=== PATIENT | male | born 1930 | race Caucasian/White ===

== ENCOUNTER 2018-03-08 13:47 | Inpatient (IN) | payer MEDICARE ==
[~2018-03-08] VITALS: Ht 170.2 cm; Wt 50.9 kg
[~2018-03-08 13:47] MED LIST: ASPI-496 PO; ENAL2.5T PO; FOLI-17 PO; GLIP5TAB10 PO; HYDR-882 PO; METF500T4 PO; METH2.5T PO; POTA10TA11 PO; PRED2.5T PO; TAMS0.4C2 PO
[2018-03-08 14:43] LABS: BASOPHILS # (AUTO) 0.03 x10^3/uL (0-0.1); BASOPHILS % (AUTO) 0 % (0-1); EOSINOPHILS # (AUTO) 0.22 x10^3/uL (0-0.4); EOSINOPHILS % (AUTO) 2 % (1-7); LYMPHOCYTES # (AUTO) 1.99 x10^3/uL (1-3.4); LYMPHOCYTES % (AUTO) 21 % (22-44); MD NO; MEAN CORPUSCULAR HEMOGLOBIN 30.6 pg (27.5-34.5); MEAN CORPUSCULAR HGB CONC 33.5 g/dL (33.2-36.2); MEAN CORPUSCULAR VOLUME 91.3 fL (81-97); MONOCYTES # (AUTO) 0.97 x10^3/uL (0.2-0.8); MONOCYTES % (AUTO) 10 % (2-9); NEUTROPHILS # (AUTO) 6.52 x10^3/uL (1.8-6.8); NEUTROPHILS % (AUTO) 67 % (42-75); PLATELET COUNT 196 x10^3/uL (130-400); RED CELL DISTRIBUTION WIDTH 14.5 % (9.4-14.8)
[2018-03-08 14:50] LABS: ALBUMIN 3.8 g/dL (3.4-5.0); ANION GAP 8 mmol/L (5-15); CALCIUM 8.9 mg/dL (8.5-10.1); CHLORIDE 94 mmol/L (98-107)
[2018-03-08 14:54] LABS: ALANINE AMINOTRANSFERASE 17 U/L (12-78); ALKALINE PHOSPHATASE 29 U/L (45-117); BILIRUBIN,TOTAL 1.9 mg/dL (0.2-1.0); TOTAL PROTEIN 7.6 g/dL (6.4-8.2)
[2018-03-08 15:17] LABS: TROPONIN I 0.024 ng/mL (0.000-0.045)
[2018-03-08 15:19] LABS: MICROSCOPIC AUTO
[2018-03-08 15:21] LABS: CULTURE INDICATED? YES
[2018-03-08] MEDS ORDERED: CEFTRIAXONE PMX 1GM/50ML 50 ML IVPB ONE (16:00)
[2018-03-08] MEDS ORDERED: CEFTRIAXONE PMX 1GM/50ML 50 ML ONE (16:00)
[2018-03-08] MEDS ORDERED: ONDANSETRON 2MG/ML, 2ML IVPush PRN (17:00)
[2018-03-08] MEDS: CEFTRIAXONE PMX 1GM/50ML 50 ML IV SCH (17:07)
[2018-03-08] MEDS ORDERED: [UNRECOGNIZED DRUG - OTHER] IV (17:13)
[2018-03-08] MEDS ORDERED: GLIP5TAB10 PO (17:13)
[2018-03-08 17:34] LABS: FREE T4 (FREE THYROXINE) 1.1 ng/dL (0.76-1.46)
[2018-03-08] MEDS: ENOXAPARIN 40 MG/0.4 ML SQ SCH (18:24)
[2018-03-08] MEDS: SODIUM CHLORIDE 0.9% 1,000 ML IV SCH (18:24)
[2018-03-08 18:43] VITALS: BP 192/91
[2018-03-08] MEDS: LABETALOL 5MG/ML, 20ML IVPush PRN (18:48)
[2018-03-08 19:47] VITALS: BP 158/73
[2018-03-08] MEDS: INSULIN LISPRO 100 UNITS/ML, PEN SQ-INSULIN SCH (21:16)
[2018-03-08 21:30] VITALS: BP 167/83
[2018-03-08 21:32] VITALS: BP 159/80
[2018-03-08 21:35] VITALS: BP 142/75
[2018-03-09] VITALS (8 sets, daily range): BP systolic 150–174; BP diastolic 74–84
[2018-03-09] MEDS: SODIUM CHLORIDE 0.9% 1,000 ML IV SCH ×2 (04:31→13:37)
[2018-03-09 06:17] LABS: BASOPHILS # (AUTO) 0.02 x10^3/uL (0-0.1); BASOPHILS % (AUTO) 0 % (0-1); EOSINOPHILS # (AUTO) 0.22 x10^3/uL (0-0.4); EOSINOPHILS % (AUTO) 4 % (1-7); LYMPHOCYTES # (AUTO) 1.81 x10^3/uL (1-3.4); LYMPHOCYTES % (AUTO) 29 % (22-44); MD NO; MEAN CORPUSCULAR HEMOGLOBIN 30.2 pg (27.5-34.5); MEAN CORPUSCULAR HGB CONC 33.1 g/dL (33.2-36.2); MEAN CORPUSCULAR VOLUME 91.2 fL (81-97); MONOCYTES # (AUTO) 0.77 x10^3/uL (0.2-0.8); MONOCYTES % (AUTO) 13 % (2-9); NEUTROPHILS # (AUTO) 3.36 x10^3/uL (1.8-6.8); NEUTROPHILS % (AUTO) 54 % (42-75); PLATELET COUNT 164 x10^3/uL (130-400); RED BLOOD COUNT 3.87 x10^6/uL (4.38-5.82); RED CELL DISTRIBUTION WIDTH 14.6 % (9.4-14.8)
[2018-03-09 06:26] LABS: ANION GAP 4 mmol/L (5-15); CALCIUM 8.4 mg/dL (8.5-10.1); CHLORIDE 103 mmol/L (98-107)
[2018-03-09 06:38] LABS: ALANINE AMINOTRANSFERASE 14 U/L (12-78); ALKALINE PHOSPHATASE 23 U/L (45-117); BILIRUBIN,TOTAL 1.3 mg/dL (0.2-1.0); CREATININE 0.78 mg/dL (0.7-1.3); TOTAL PROTEIN 6.3 g/dL (6.4-8.2)
[2018-03-09] MEDS: INSULIN LISPRO 100 UNITS/ML, PEN SQ-INSULIN SCH ×4 (07:00→20:23)
[2018-03-09] MEDS: SENNA/DOCUSATE TABLET PO SCH (08:10)
[2018-03-09] MEDS: ASPIRIN 81 MG TABLET EC PO SCH (08:10)
[2018-03-09] MEDS: TAMSULOSIN 0.4 MG CAP.ER.24H PO SCH (08:10)
[2018-03-09] MEDS: FOLIC ACID 1 MG TABLET PO SCH (08:10)
[2018-03-09] MEDS ORDERED: DOCUSATE 100 MG CAPSULE PO PRN (16:00)
[2018-03-09] MEDS: POLYETHYLENE GLYCOL 17 GM PACKET PO PRN (16:38)
[2018-03-09] MEDS: ENOXAPARIN 40 MG/0.4 ML SQ SCH (16:38)
[2018-03-09] MEDS: CEFTRIAXONE PMX 1GM/50ML 50 ML IV SCH (17:21)
[2018-03-10 00:58] VITALS: BP_SYST 180; BP_SYST 188; BP_DIAS 85; BP_DIAS 88
[2018-03-10] MEDS: LABETALOL 5MG/ML, 20ML IVPush PRN (01:10)
[2018-03-10 02:02] VITALS: BP 156/74
[2018-03-10 06:04] LABS: BASOPHILS # (AUTO) 0.04 x10^3/uL (0-0.1); BASOPHILS % (AUTO) 0 % (0-1); EOSINOPHILS % (AUTO) 3 % (1-7); LYMPHOCYTES # (AUTO) 1.33 x10^3/uL (1-3.4); LYMPHOCYTES % (AUTO) 15 % (22-44); MD NO; MEAN CORPUSCULAR HGB CONC 32.9 g/dL (33.2-36.2); MEAN CORPUSCULAR VOLUME 90.9 fL (81-97); MEAN PLATELET VOLUME 6.4 fL (7.4-10.4); MONOCYTES # (AUTO) 0.75 x10^3/uL (0.2-0.8); MONOCYTES % (AUTO) 9 % (2-9); NEUTROPHILS # (AUTO) 6.39 x10^3/uL (1.8-6.8); NEUTROPHILS % (AUTO) 73 % (42-75); PLATELET COUNT 163 x10^3/uL (130-400); RED BLOOD COUNT 3.94 x10^6/uL (4.38-5.82); RED CELL DISTRIBUTION WIDTH 14.9 % (9.4-14.8)
[2018-03-10 06:21] LABS: ANION GAP 9 mmol/L (5-15); CALCIUM 8.6 mg/dL (8.5-10.1); CHLORIDE 104 mmol/L (98-107)
[2018-03-10 06:24] LABS: CREATININE 0.69 mg/dL (0.7-1.3)
[2018-03-10] MEDS ORDERED: POTASSIUM CHLORIDE 20 MEQ TAB.ER.PRT PO ONE ×2 (07:30→10:30)
[2018-03-10] MEDS: ASPIRIN 81 MG TABLET EC PO SCH (08:25)
[2018-03-10] MEDS: TAMSULOSIN 0.4 MG CAP.ER.24H PO SCH (08:25)
[2018-03-10] MEDS: INSULIN LISPRO 100 UNITS/ML, PEN SQ-INSULIN SCH ×4 (08:25→21:46)
[2018-03-10] MEDS: FOLIC ACID 1 MG TABLET PO SCH (08:26)
[2018-03-10] MEDS: SENNA/DOCUSATE TABLET PO SCH (08:26)
[2018-03-10 08:56] LABS: HEMOGLOBIN A1C 6.4 % (4.2-6.3)
[2018-03-10] MEDS ORDERED: ENALAPRIL 2.5MG TABLET PO SCH (09:00)
[2018-03-10 10:33] VITALS: BP 153/78
[2018-03-10] MEDS: SODIUM CHLORIDE 0.45% 1,000 ML IV SCH (12:00)
[2018-03-10 13:06] VITALS: BP 152/78
[2018-03-10] MEDS ORDERED: SODIUM CHLORIDE 0.9% 1,000 ML IV SCH (16:37)
[2018-03-10] MEDS: ENOXAPARIN 40 MG/0.4 ML SQ SCH (16:49)
[2018-03-10] MEDS: POLYETHYLENE GLYCOL 17 GM PACKET PO PRN (16:49)
[2018-03-10] MEDS: CEFTRIAXONE PMX 1GM/50ML 50 ML IV SCH (16:49)
[2018-03-10 18:57] VITALS: BP 142/74
[2018-03-11 02:00] VITALS: BP 157/88
[2018-03-11] MEDS: ONDANSETRON ODT 4 MG PO PRN ×2 (05:28→08:57)
[2018-03-11 05:58] LABS: CHLORIDE 100 mmol/L (98-107)
[2018-03-11 06:01] LABS: BASOPHILS # (AUTO) 0.03 x10^3/uL (0-0.1); BASOPHILS % (AUTO) 0 % (0-1); EOSINOPHILS # (AUTO) 0.16 x10^3/uL (0-0.4); EOSINOPHILS % (AUTO) 2 % (1-7); LYMPHOCYTES # (AUTO) 1.11 x10^3/uL (1-3.4); LYMPHOCYTES % (AUTO) 12 % (22-44); MD NO; MEAN CORPUSCULAR HEMOGLOBIN 30.2 pg (27.5-34.5); MEAN CORPUSCULAR HGB CONC 33.1 g/dL (33.2-36.2); MEAN CORPUSCULAR VOLUME 91.3 fL (81-97); MONOCYTES # (AUTO) 0.64 x10^3/uL (0.2-0.8); MONOCYTES % (AUTO) 7 % (2-9); NEUTROPHILS # (AUTO) 7.78 x10^3/uL (1.8-6.8); NEUTROPHILS % (AUTO) 80 % (42-75); PLATELET COUNT 149 x10^3/uL (130-400); RED BLOOD COUNT 3.97 x10^6/uL (4.38-5.82); RED CELL DISTRIBUTION WIDTH 14.9 % (9.4-14.8)
[2018-03-11 06:03] LABS: ALBUMIN 3.2 g/dL (3.4-5.0); ANION GAP 11 mmol/L (5-15); CALCIUM 8.3 mg/dL (8.5-10.1); CREATININE 0.61 mg/dL (0.7-1.3)
[2018-03-11 06:37] VITALS: BP 181/87
[2018-03-11] MEDS: SODIUM CHLORIDE 0.45% 1,000 ML IV SCH (08:47)
[2018-03-11] MEDS: ASPIRIN 81 MG TABLET EC PO SCH (08:47)
[2018-03-11] MEDS: THIAMINE 100MG TABLET PO SCH (08:47)
[2018-03-11] MEDS: INSULIN LISPRO 100 UNITS/ML, PEN SQ-INSULIN SCH ×4 (08:47→21:05)
[2018-03-11] MEDS: AMLODIPINE 5 MG TABLET PO SCH ×2 (08:48→21:04)
[2018-03-11] MEDS: FOLIC ACID 1 MG TABLET PO SCH ×2 (08:48)
[2018-03-11] MEDS: TAMSULOSIN 0.4 MG CAP.ER.24H PO SCH (08:48)
[2018-03-11] MEDS: SENNA/DOCUSATE TABLET PO SCH (08:57)
[2018-03-11] MEDS ORDERED: LORazepam 0.5MG TABLET PO PRN (09:00)
[2018-03-11 11:13] VITALS: BP 156/76
[2018-03-11] MEDS ORDERED: BISACODYL 10 MG SUPP PR ONE (14:30)
[2018-03-11] MEDS ORDERED: MAGNESIUM HYDROXIDE 8%, 30ML UDC PO ONE (14:30)
[2018-03-11] MEDS: POLYETHYLENE GLYCOL 17 GM PACKET PO PRN (14:32)
[2018-03-11 15:02] VITALS: BP 154/79
[2018-03-11] MEDS: CEFTRIAXONE PMX 1GM/50ML 50 ML IV SCH (17:27)
[2018-03-11] MEDS: ENOXAPARIN 40 MG/0.4 ML SQ SCH (17:28)
[2018-03-11 18:53] VITALS: BP 144/73
[2018-03-12 01:35] VITALS: BP 164/80
[2018-03-12] MEDS: SODIUM CHLORIDE 0.45% 1,000 ML IV SCH (03:25)
[2018-03-12 05:20] LABS: BASOPHILS # (AUTO) 0.03 x10^3/uL (0-0.1); BASOPHILS % (AUTO) 0 % (0-1); EOSINOPHILS # (AUTO) 0.31 x10^3/uL (0-0.4); EOSINOPHILS % (AUTO) 4 % (1-7); LYMPHOCYTES # (AUTO) 1.44 x10^3/uL (1-3.4); LYMPHOCYTES % (AUTO) 16 % (22-44); MD NO; MEAN CORPUSCULAR HEMOGLOBIN 30.7 pg (27.5-34.5); MEAN CORPUSCULAR HGB CONC 33.7 g/dL (33.2-36.2); MEAN CORPUSCULAR VOLUME 91.2 fL (81-97); MEAN PLATELET VOLUME 6.8 fL (7.4-10.4); MONOCYTES # (AUTO) 0.86 x10^3/uL (0.2-0.8); MONOCYTES % (AUTO) 10 % (2-9); NEUTROPHILS # (AUTO) 6.39 x10^3/uL (1.8-6.8); NEUTROPHILS % (AUTO) 71 % (42-75); PLATELET COUNT 151 x10^3/uL (130-400); RED CELL DISTRIBUTION WIDTH 14.9 % (9.4-14.8)
[2018-03-12 05:31] LABS: CALCIUM 8.3 mg/dL (8.5-10.1); CHLORIDE 100 mmol/L (98-107)
[2018-03-12 05:35] LABS: ALANINE AMINOTRANSFERASE 12 U/L (12-78); ALBUMIN 3.1 g/dL (3.4-5.0); ALKALINE PHOSPHATASE 26 U/L (45-117); ANION GAP 6 mmol/L (5-15); BILIRUBIN,TOTAL 0.8 mg/dL (0.2-1.0); CREATININE 0.64 mg/dL (0.7-1.3); TOTAL PROTEIN 6.5 g/dL (6.4-8.2)
[2018-03-12 08:08] VITALS: BP 132/73
[2018-03-12] MEDS: THIAMINE 100MG TABLET PO SCH (08:41)
[2018-03-12] MEDS: TAMSULOSIN 0.4 MG CAP.ER.24H PO SCH (08:41)
[2018-03-12] MEDS: FOLIC ACID 1 MG TABLET PO SCH ×2 (08:41→08:42)
[2018-03-12] MEDS: INSULIN LISPRO 100 UNITS/ML, PEN SQ-INSULIN SCH ×2 (08:42→11:15)
[2018-03-12] MEDS: ASPIRIN 81 MG TABLET EC PO SCH (08:42)
[2018-03-12] MEDS: AMLODIPINE 5 MG TABLET PO SCH (08:42)
[2018-03-12] MEDS: SENNA/DOCUSATE TABLET PO SCH (08:43)
[2018-03-12] MEDS ORDERED: THIA100T6 PO (13:33)
[2018-03-12] MEDS ORDERED: AMLO5TAB2 PO (13:33)
[2018-03-12] MEDS ORDERED: FOLI-17 PO (13:33)
[2018-03-12] MEDS ORDERED: CEFD300C37 PO (13:34)
== END 2018-03-12 15:07 | disposition home health service (06) | DRG 689 ==
LOC: ED 15:49 → 3NE 15:50 → ED 16:36 → 4WST 17:55
PROVIDERS: ADMIT Internal Medicine; ATTEND Internal Medicine
DX: N30.00 Acute cystitis without hematuria (principal); E43 Unspecified severe protein-calorie malnutrition; E11.65 Type 2 diabetes mellitus with hyperglycemia; D89.9 Disorder involving the immune mechanism, unspecified; R17 Unspecified jaundice; E87.1 Hypo-osmolality and hyponatremia; M06.9 Rheumatoid arthritis, unspecified; Z68.1 Body mass index [BMI] 19.9 or less, adult; R62.7 Adult failure to thrive; W18.30XA Fall on same level, unspecified, initial encounter; N40.0 Benign prostatic hyperplasia without lower urinary tract symptoms; E78.5 Hyperlipidemia, unspecified; I10 Essential (primary) hypertension; Z66 Do not resuscitate; K59.00 Constipation, unspecified; M19.90 Unspecified osteoarthritis, unspecified site; Z79.899 Other long term (current) drug therapy; Z79.82 Long term (current) use of aspirin; Z79.84 Long term (current) use of oral hypoglycemic drugs; Y93.89 Activity, other specified; Y92.89 Other specified places as the place of occurrence of the external cause; Y99.8 Other external cause status
CPT/HCPCS: 36415; 74018; 74022; 80048; 80053; 81001; 82040; 82962; 83036; 83605; 83735; 84100; 84439; 84443; 84484; 85025; 87040; 87086; 93005; 93306; 96365; 96372; 96375; J0696; J1650; Q0162; J1815; J7030

== ENCOUNTER 2018-06-22 14:39 | Inpatient (IN) | payer MEDICARE ==
[~2018-06-22] VITALS: Ht 167.6 cm; Wt 52.6 kg
[~2018-06-22 14:39] MED LIST changes: +AMLO5TAB7 PO; +CEFD300C37 PO; +INSU100I11 SQ-INSULIN; +LISI-167 PO; +METF500T17 PO; -METF500T4 PO; +PRED1TAB PO; +THIA100T67 PO; +[UNRECOGNIZED DRUG - OTHER] IV
[2018-06-22] MEDS ORDERED: SODIUM CHLORIDE 0.9% 1,000ML IVBOLUS ONE (15:00)
[2018-06-22] MEDS ORDERED: SODIUM CHLORIDE FLUSH 10ML SYR IVF ONE (15:00)
[2018-06-22 15:45] LABS: CULTURE INDICATED? YES; MICROSCOPIC INDICATED
[2018-06-22 16:04] LABS: BASOPHILS # (AUTO) 0.03 x10^3/uL (0-0.1); BASOPHILS % (AUTO) 0 % (0-1); EOSINOPHILS # (AUTO) 0.06 x10^3/uL (0-0.4); EOSINOPHILS % (AUTO) 1 % (1-7); LYMPHOCYTES # (AUTO) 1.03 x10^3/uL (1-3.4); LYMPHOCYTES % (AUTO) 15 % (22-44); MD NO; MEAN CORPUSCULAR HEMOGLOBIN 30.2 pg (27.5-34.5); MEAN CORPUSCULAR HGB CONC 33.6 g/dL (33.2-36.2); MEAN CORPUSCULAR VOLUME 89.7 fL (81-97); MEAN PLATELET VOLUME 6.4 fL (7.4-10.4); MONOCYTES # (AUTO) 0.66 x10^3/uL (0.2-0.8); MONOCYTES % (AUTO) 10 % (2-9); NEUTROPHILS # (AUTO) 5.05 x10^3/uL (1.8-6.8); NEUTROPHILS % (AUTO) 74 % (42-75); PLATELET COUNT 218 x10^3/uL (130-400); RED BLOOD COUNT 3.92 x10^6/uL (4.38-5.82); RED CELL DISTRIBUTION WIDTH 16.1 % (9.4-14.8)
[2018-06-22 16:13] LABS: ALBUMIN 3.1 g/dL (3.4-5.0); ANION GAP 7 mmol/L (5-15); CALCIUM 8.7 mg/dL (8.5-10.1); CHLORIDE 96 mmol/L (98-107)
[2018-06-22 16:14] LABS: INTERNATIONAL NORMALIZED RATIO 1.08 (0.93-1.1); PROTHROMBIN TIME 11.1 Seconds (9.6-11.5)
[2018-06-22 16:18] LABS: ALANINE AMINOTRANSFERASE 15 U/L (12-78); ALKALINE PHOSPHATASE 25 U/L (45-117); BILIRUBIN,TOTAL 0.8 mg/dL (0.2-1.0); CREATININE 0.77 mg/dL (0.7-1.3); TOTAL PROTEIN 6.8 g/dL (6.4-8.2)
[2018-06-22] MEDS ORDERED: TIMO5DRO33 EACHEYE (16:22)
[2018-06-22] MEDS ORDERED: LATA7.5D EACHEYE (16:24)
[2018-06-22] MEDS ORDERED: METH2.5T PO (16:31)
[2018-06-22] MEDS ORDERED: CITA10TA4 PO (16:32)
[2018-06-22] MEDS ORDERED: LISI-167 PO (16:33)
[2018-06-22] MEDS ORDERED: METF500T17 PO (16:34)
[2018-06-22] MEDS ORDERED: BISA5TAB5 PO (16:35)
[2018-06-22] MEDS ORDERED: SODIUM CHLORIDE 0.9% 1,000 ML IV SCH (17:25)
[2018-06-22] MEDS ORDERED: BISACODYL 10 MG SUPP PR PRN (17:30)
[2018-06-22] MEDS ORDERED: ACETAMINOPHEN 325 MG TABLET PO PRN (17:30)
[2018-06-22] MEDS ORDERED: DOCUSATE 100 MG CAPSULE PO PRN (17:30)
[2018-06-22] MEDS ORDERED: POLYETHYLENE GLYCOL 17 GM PACKET PO PRN ×2 (17:30→18:00)
[2018-06-22] MEDS ORDERED: SODIUM CHLORIDE FLUSH 10ML SYR IVF PRN (18:00)
[2018-06-22] MEDS ORDERED: LIDODERM 5% PATCH TD PRN (18:00)
[2018-06-22] MEDS: TIMOLOL OPHTH 0.5%, 5ML EACHEYE SCH (21:00)
[2018-06-22] MEDS: BISACODYL 5 MG EC TABLET PO SCH (21:00)
[2018-06-22] MEDS: LATANOPROST OPHTH 0.005%, 2.5ML EACHEYE SCH (21:00)
[2018-06-22] MEDS: metFORMIN 500 MG TABLET PO SCH (21:00)
[2018-06-22] MEDS ORDERED: HYDROcodone/APAP 5/325 TABLET ONE (21:55)
[2018-06-22 22:14] VITALS: BP 109/79
[2018-06-23 04:43] LABS: BASOPHILS # (AUTO) 0.02 x10^3/uL (0-0.1); BASOPHILS % (AUTO) 0 % (0-1); EOSINOPHILS # (AUTO) 0.12 x10^3/uL (0-0.4); EOSINOPHILS % (AUTO) 2 % (1-7); LYMPHOCYTES # (AUTO) 1.08 x10^3/uL (1-3.4); LYMPHOCYTES % (AUTO) 18 % (22-44); MD NO; MEAN CORPUSCULAR HEMOGLOBIN 29.8 pg (27.5-34.5); MEAN CORPUSCULAR HGB CONC 33.8 g/dL (33.2-36.2); MEAN PLATELET VOLUME 6.4 fL (7.4-10.4); MONOCYTES # (AUTO) 0.68 x10^3/uL (0.2-0.8); MONOCYTES % (AUTO) 11 % (2-9); NEUTROPHILS # (AUTO) 4.06 x10^3/uL (1.8-6.8); NEUTROPHILS % (AUTO) 68 % (42-75); PLATELET COUNT 195 x10^3/uL (130-400); RED BLOOD COUNT 3.58 x10^6/uL (4.38-5.82); RED CELL DISTRIBUTION WIDTH 15.8 % (9.4-14.8)
[2018-06-23 04:49] LABS: ALBUMIN 2.7 g/dL (3.4-5.0); ANION GAP 5 mmol/L (5-15); CHLORIDE 97 mmol/L (98-107)
[2018-06-23 05:00] VITALS: BP 149/79
[2018-06-23 05:17] LABS: ALANINE AMINOTRANSFERASE 16 U/L (12-78); ALKALINE PHOSPHATASE 25 U/L (45-117); BILIRUBIN,TOTAL 0.8 mg/dL (0.2-1.0); CREATININE 0.57 mg/dL (0.7-1.3); THYROID STIMULATING HORMONE 0.439 mIU/L (0.358-3.740)
[2018-06-23] MEDS: TIMOLOL OPHTH 0.5%, 5ML EACHEYE SCH ×2 (09:00→21:00)
[2018-06-23] MEDS: PANTOPRAZOLE 40 MG IV IVPush SCH (09:57)
[2018-06-23] MEDS: CITALOPRAM 10 MG TABLET PO SCH (09:58)
[2018-06-23] MEDS: LISINOPRIL 10 MG TABLET PO SCH (09:58)
[2018-06-23] MEDS: FOLIC ACID 1 MG TABLET PO SCH (09:58)
[2018-06-23] MEDS: TAMSULOSIN 0.4 MG CAP.ER.24H PO SCH (09:58)
[2018-06-23] MEDS ORDERED: MAGNESIUM SULFATE PMX 2GM/50ML 50 ML IV ONE (11:30)
[2018-06-23] MEDS: ERGOCALCIFEROL 50,000 UNIT CAPSULE PO SCH (12:56)
[2018-06-23] MEDS: LATANOPROST OPHTH 0.005%, 2.5ML EACHEYE SCH (21:00)
[2018-06-23] MEDS: metFORMIN 500 MG TABLET PO SCH (23:15)
[2018-06-23] MEDS: BISACODYL 5 MG EC TABLET PO SCH (23:16)
[2018-06-24 00:56] VITALS: BP 131/67
[2018-06-24 04:53] VITALS: BP 128/79
[2018-06-24 05:17] LABS: ANION GAP 8 mmol/L (5-15); CALCIUM 8.4 mg/dL (8.5-10.1); CHLORIDE 98 mmol/L (98-107); CREATININE 0.63 mg/dL (0.7-1.3)
[2018-06-24 05:27] LABS: BASOPHILS # (AUTO) 0.01 x10^3/uL (0-0.1); BASOPHILS % (AUTO) 0 % (0-1); EOSINOPHILS # (AUTO) 0.13 x10^3/uL (0-0.4); EOSINOPHILS % (AUTO) 2 % (1-7); LYMPHOCYTES # (AUTO) 1.22 x10^3/uL (1-3.4); LYMPHOCYTES % (AUTO) 16 % (22-44); MD NO; MEAN CORPUSCULAR HEMOGLOBIN 30.1 pg (27.5-34.5); MEAN CORPUSCULAR VOLUME 88.7 fL (81-97); MEAN PLATELET VOLUME 6.7 fL (7.4-10.4); MONOCYTES # (AUTO) 0.81 x10^3/uL (0.2-0.8); MONOCYTES % (AUTO) 11 % (2-9); NEUTROPHILS % (AUTO) 72 % (42-75); PLATELET COUNT 211 x10^3/uL (130-400); RED BLOOD COUNT 3.93 x10^6/uL (4.38-5.82); RED CELL DISTRIBUTION WIDTH 16.1 % (9.4-14.8)
[2018-06-24 07:49] VITALS: BP 124/53
[2018-06-24] MEDS: TIMOLOL OPHTH 0.5%, 5ML EACHEYE SCH ×2 (09:00→20:45)
[2018-06-24] MEDS: PANTOPRAZOLE 40 MG IV IVPush SCH (09:25)
[2018-06-24] MEDS: TAMSULOSIN 0.4 MG CAP.ER.24H PO SCH (09:25)
[2018-06-24] MEDS: LISINOPRIL 10 MG TABLET PO SCH (09:25)
[2018-06-24] MEDS: FOLIC ACID 1 MG TABLET PO SCH (09:26)
[2018-06-24] MEDS: CITALOPRAM 10 MG TABLET PO SCH (09:26)
[2018-06-24 14:34] VITALS: BP 130/72
[2018-06-24 19:41] VITALS: BP 120/66
[2018-06-24] MEDS: LATANOPROST OPHTH 0.005%, 2.5ML RIGHTEYE SCH (20:45)
[2018-06-24] MEDS: BISACODYL 5 MG EC TABLET PO SCH (20:46)
[2018-06-24] MEDS: metFORMIN 500 MG TABLET PO SCH (20:46)
[2018-06-25 00:31] VITALS: BP 160/71
[2018-06-25 01:00] VITALS: BP 155/82
[2018-06-25 04:59] VITALS: BP 160/82
[2018-06-25] MEDS ORDERED: hydrALAzine 20 MG/ML, 1ML IV ONE (05:30)
[2018-06-25 06:57] VITALS: BP 149/54
[2018-06-25] MEDS: PANTOPROZOLE 40MG TABLET PO SCH (07:42)
[2018-06-25] MEDS: TIMOLOL OPHTH 0.5%, 5ML EACHEYE SCH ×3 (08:50→21:00)
[2018-06-25] MEDS: CITALOPRAM 10 MG TABLET PO SCH (08:50)
[2018-06-25] MEDS: TAMSULOSIN 0.4 MG CAP.ER.24H PO SCH (08:50)
[2018-06-25] MEDS: FOLIC ACID 1 MG TABLET PO SCH (08:50)
[2018-06-25] MEDS: LISINOPRIL 10 MG TABLET PO SCH (08:50)
[2018-06-25] MEDS: SODIUM CHLORIDE FLUSH 10ML SYR IVF SCH (12:00)
[2018-06-25 13:09] VITALS: BP 112/62
[2018-06-25] MEDS: BISACODYL 5 MG EC TABLET PO SCH (20:59)
[2018-06-25] MEDS: metFORMIN 500 MG TABLET PO SCH (20:59)
[2018-06-25] MEDS: LATANOPROST OPHTH 0.005%, 2.5ML RIGHTEYE SCH (21:00)
[2018-06-25 21:03] VITALS: BP 140/58
[2018-06-26 01:37] VITALS: BP 146/76
[2018-06-26 05:39] LABS: ALBUMIN 2.9 g/dL (3.4-5.0); ANION GAP 6 mmol/L (5-15); CALCIUM 8.8 mg/dL (8.5-10.1); CHLORIDE 95 mmol/L (98-107); CREATININE 0.71 mg/dL (0.7-1.3)
[2018-06-26 07:03] VITALS: BP 152/64
[2018-06-26 09:30] VITALS: BP 126/70
[2018-06-26] MEDS ORDERED: SODIUM CHLORIDE 0.9% 1,000 ML IV SCH (09:30)
[2018-06-26] MEDS: CITALOPRAM 10 MG TABLET PO SCH (09:30)
[2018-06-26] MEDS: PANTOPROZOLE 40MG TABLET PO SCH (09:31)
[2018-06-26] MEDS: FOLIC ACID 1 MG TABLET PO SCH (09:31)
[2018-06-26] MEDS: LISINOPRIL 10 MG TABLET PO SCH (09:31)
[2018-06-26] MEDS: TIMOLOL OPHTH 0.5%, 5ML EACHEYE SCH ×2 (09:32→21:00)
[2018-06-26] MEDS: TAMSULOSIN 0.4 MG CAP.ER.24H PO SCH (09:32)
[2018-06-26] MEDS: SODIUM CHLORIDE FLUSH 10ML SYR IVF SCH ×2 (09:39→21:20)
[2018-06-26 12:22] VITALS: BP 143/72
[2018-06-26 16:48] VITALS: BP 137/76
[2018-06-26] MEDS: INSULIN LISPRO 100 UNITS/ML, PEN SQ-INSULIN SCH ×2 (16:49→20:25)
[2018-06-26 20:02] VITALS: BP 135/65
[2018-06-26] MEDS: BISACODYL 5 MG EC TABLET PO SCH (21:00)
[2018-06-26] MEDS: LATANOPROST OPHTH 0.005%, 2.5ML RIGHTEYE SCH (21:20)
[2018-06-26] MEDS: metFORMIN 500 MG TABLET PO SCH (21:21)
[2018-06-27 01:48] VITALS: BP 143/72
[2018-06-27 06:55] VITALS: BP 158/78
[2018-06-27] MEDS: INSULIN LISPRO 100 UNITS/ML, PEN SQ-INSULIN SCH ×4 (07:00→21:35)
[2018-06-27] MEDS: LISINOPRIL 10 MG TABLET PO SCH (08:15)
[2018-06-27] MEDS: FOLIC ACID 1 MG TABLET PO SCH (08:15)
[2018-06-27] MEDS: CITALOPRAM 10 MG TABLET PO SCH (08:15)
[2018-06-27] MEDS: TAMSULOSIN 0.4 MG CAP.ER.24H PO SCH (08:15)
[2018-06-27] MEDS: PANTOPROZOLE 40MG TABLET PO SCH (08:15)
[2018-06-27] MEDS: TIMOLOL OPHTH 0.5%, 5ML EACHEYE SCH ×2 (08:16→20:47)
[2018-06-27] MEDS: SODIUM CHLORIDE FLUSH 10ML SYR IVF SCH ×2 (08:17→21:35)
[2018-06-27 12:33] VITALS: BP 118/56
[2018-06-27 19:11] VITALS: BP 140/84
[2018-06-27] MEDS: BISACODYL 5 MG EC TABLET PO SCH (21:35)
[2018-06-27] MEDS: metFORMIN 500 MG TABLET PO SCH (21:35)
[2018-06-27] MEDS: LATANOPROST OPHTH 0.005%, 2.5ML RIGHTEYE SCH (21:35)
[2018-06-28 01:45] VITALS: BP 150/74
[2018-06-28 06:52] VITALS: BP 147/84
[2018-06-28] MEDS: INSULIN LISPRO 100 UNITS/ML, PEN SQ-INSULIN SCH ×4 (07:00→21:16)
[2018-06-28] MEDS: FOLIC ACID 1 MG TABLET PO SCH (07:52)
[2018-06-28] MEDS: PANTOPROZOLE 40MG TABLET PO SCH (07:52)
[2018-06-28] MEDS: LISINOPRIL 10 MG TABLET PO SCH (07:52)
[2018-06-28] MEDS: CITALOPRAM 10 MG TABLET PO SCH (07:52)
[2018-06-28] MEDS: TIMOLOL OPHTH 0.5%, 5ML EACHEYE SCH ×2 (07:53→21:00)
[2018-06-28] MEDS: TAMSULOSIN 0.4 MG CAP.ER.24H PO SCH (07:53)
[2018-06-28] MEDS: SODIUM CHLORIDE FLUSH 10ML SYR IVF SCH ×2 (07:53→20:51)
[2018-06-28] MEDS: D5%-0.9% NACL 1,000 ML IV SCH ×2 (11:41→20:51)
[2018-06-28 12:11] VITALS: BP 153/84
[2018-06-28] MEDS ORDERED: FENTANYL PF 100 MCG/2ML ONE (15:48)
[2018-06-28] MEDS ORDERED: FENTANYL PF 100 MCG/2ML IV PRN (16:30)
[2018-06-28] MEDS ORDERED: ONDANSETRON ODT 8 MG PO PRN (16:30)
[2018-06-28] MEDS ORDERED: ACETAMINOPHEN 325 MG TABLET PO PRN (16:30)
[2018-06-28] MEDS ORDERED: ONDANSETRON 2MG/ML, 2ML IV PRN ×2 (16:30→18:30)
[2018-06-28] MEDS ORDERED: MORPHINE SULFATE 4 MG/ML, 1ML IVPush PRN (16:30)
[2018-06-28] MEDS ORDERED: OXYcodone 5 MG/5 ML ORAL.SOL UDC PO PRN (16:30)
[2018-06-28] MEDS ORDERED: PROMETHAZINE 25 MG/ML, 1ML IV PRN (16:30)
[2018-06-28] MEDS ORDERED: ONDANSETRON 2MG/ML, 2ML ONE (16:55)
[2018-06-28] MEDS ORDERED: CEFAZOLIN 1,000 MG ONE (16:55)
[2018-06-28] MEDS ORDERED: ROCURONIUM 10MG/ML,5ML ONE (16:55)
[2018-06-28] MEDS ORDERED: GLYCOPYRROLATE 0.2MG/1ML, 5ML ONE (16:55)
[2018-06-28] MEDS ORDERED: PROPOFOL 10 MG/ML, 20ML ONE (16:55)
[2018-06-28] MEDS ORDERED: SUCCINYLCHOLINE 20 MG/ML, 10ML ONE (16:55)
[2018-06-28] MEDS ORDERED: DEXAMETHASONE 4 MG/ML, 1ML ONE (16:55)
[2018-06-28] MEDS ORDERED: NEOSTIGMINE 1 MG/ML, 10ML ONE (16:55)
[2018-06-28] MEDS ORDERED: BACITRACIN 50,000 UNIT IM ONE (17:29)
[2018-06-28] MEDS ORDERED: BUPIVACAINE/PF-EPI 0.5% 1:200K INFIL ONE (17:29)
[2018-06-28] MEDS ORDERED: THROMBIN 5,000 UNIT VIAL TP ONE (17:30)
[2018-06-28] MEDS ORDERED: OXYcodone/APAP 5/325MG TABLET PO PRN (18:30)
[2018-06-28] MEDS ORDERED: HYDROcodone/APAP 5/325 TABLET PO PRN (18:30)
[2018-06-28] MEDS ORDERED: DIPHENHYDRAMINE 50 MG/ML, 1ML IV PRN (18:30)
[2018-06-28] MEDS ORDERED: ACETAMINOPHEN 650 MG/20.3 ML UDC PO PRN (18:30)
[2018-06-28] MEDS ORDERED: morphine SULFATE 10 MG/ML, 1ML IV PRN (18:30)
[2018-06-28] MEDS ORDERED: BISACODYL 10 MG SUPP PR PRN (18:30)
[2018-06-28] MEDS ORDERED: MAGNESIUM HYDROXIDE 8%, 30ML UDC PO PRN (18:30)
[2018-06-28] MEDS: CEFAZOLIN PMX 1GM/50ML 50 ML IVPB SCH (20:50)
[2018-06-28] MEDS: POTASSIUM CHLORIDE 40 MEQ in SODIUM CHLORIDE 0.9% 1,000 ML IV SCH (20:51)
[2018-06-28] MEDS: LATANOPROST OPHTH 0.005%, 2.5ML RIGHTEYE SCH (21:00)
[2018-06-28] MEDS: metFORMIN 500 MG TABLET PO SCH (21:14)
[2018-06-28] MEDS: BISACODYL 5 MG EC TABLET PO SCH (21:17)
[2018-06-29] MEDS: CEFAZOLIN PMX 1GM/50ML 50 ML IVPB SCH (02:17)
[2018-06-29 04:38] LABS: BASOPHILS # (AUTO) 0.02 x10^3/uL (0-0.1); BASOPHILS % (AUTO) 0 % (0-1); EOSINOPHILS % (AUTO) 0 % (1-7); LYMPHOCYTES # (AUTO) 0.91 x10^3/uL (1-3.4); LYMPHOCYTES % (AUTO) 9 % (22-44); MD NO; MEAN CORPUSCULAR HGB CONC 33.7 g/dL (33.2-36.2); MEAN CORPUSCULAR VOLUME 89.2 fL (81-97); MEAN PLATELET VOLUME 6.6 fL (7.4-10.4); MONOCYTES # (AUTO) 0.63 x10^3/uL (0.2-0.8); MONOCYTES % (AUTO) 6 % (2-9); NEUTROPHILS # (AUTO) 8.48 x10^3/uL (1.8-6.8); NEUTROPHILS % (AUTO) 84 % (42-75); PLATELET COUNT 236 x10^3/uL (130-400); RED BLOOD COUNT 4.19 x10^6/uL (4.38-5.82); RED CELL DISTRIBUTION WIDTH 15.8 % (9.4-14.8)
[2018-06-29 04:39] LABS: ANION GAP 10 mmol/L (5-15); CALCIUM 8.4 mg/dL (8.5-10.1); CHLORIDE 95 mmol/L (98-107)
[2018-06-29] MEDS: POTASSIUM CHLORIDE 40 MEQ in SODIUM CHLORIDE 0.9% 1,000 ML IV SCH (09:29)
[2018-06-29] MEDS: INSULIN LISPRO 100 UNITS/ML, PEN SQ-INSULIN SCH ×4 (09:41→20:50)
[2018-06-29] MEDS: TAMSULOSIN 0.4 MG CAP.ER.24H PO SCH (09:42)
[2018-06-29] MEDS: FOLIC ACID 1 MG TABLET PO SCH (09:43)
[2018-06-29] MEDS: LISINOPRIL 10 MG TABLET PO SCH (09:43)
[2018-06-29] MEDS: CITALOPRAM 10 MG TABLET PO SCH (09:43)
[2018-06-29] MEDS: PANTOPROZOLE 40MG TABLET PO SCH (09:43)
[2018-06-29] MEDS: SENNA/DOCUSATE TABLET PO SCH (09:43)
[2018-06-29] MEDS: SODIUM CHLORIDE FLUSH 10ML SYR IVF SCH ×2 (09:43→20:50)
[2018-06-29] MEDS: TIMOLOL OPHTH 0.5%, 5ML EACHEYE SCH ×2 (09:44→20:49)
[2018-06-29] MEDS: LATANOPROST OPHTH 0.005%, 2.5ML RIGHTEYE SCH (20:49)
[2018-06-29] MEDS: BISACODYL 5 MG EC TABLET PO SCH (20:49)
[2018-06-29] MEDS: metFORMIN 500 MG TABLET PO SCH (20:50)
[2018-06-30 04:15] LABS: BASOPHILS # (AUTO) 0.03 x10^3/uL (0-0.1); BASOPHILS % (AUTO) 0 % (0-1); EOSINOPHILS # (AUTO) 0.15 x10^3/uL (0-0.4); EOSINOPHILS % (AUTO) 1 % (1-7); LYMPHOCYTES # (AUTO) 1.59 x10^3/uL (1-3.4); LYMPHOCYTES % (AUTO) 15 % (22-44); MD NO; MEAN CORPUSCULAR HEMOGLOBIN 30.2 pg (27.5-34.5); MEAN CORPUSCULAR HGB CONC 33.6 g/dL (33.2-36.2); MEAN CORPUSCULAR VOLUME 90.1 fL (81-97); MEAN PLATELET VOLUME 6.7 fL (7.4-10.4); MONOCYTES # (AUTO) 1.19 x10^3/uL (0.2-0.8); MONOCYTES % (AUTO) 11 % (2-9); NEUTROPHILS # (AUTO) 7.82 x10^3/uL (1.8-6.8); NEUTROPHILS % (AUTO) 73 % (42-75); PLATELET COUNT 237 x10^3/uL (130-400); RED BLOOD COUNT 3.68 x10^6/uL (4.38-5.82); RED CELL DISTRIBUTION WIDTH 16.2 % (9.4-14.8)
[2018-06-30 04:24] LABS: ANION GAP 8 mmol/L (5-15); CALCIUM 8.6 mg/dL (8.5-10.1); CHLORIDE 98 mmol/L (98-107); CREATININE 0.66 mg/dL (0.7-1.3)
[2018-06-30] MEDS: LISINOPRIL 10 MG TABLET PO SCH (08:06)
[2018-06-30] MEDS: CITALOPRAM 10 MG TABLET PO SCH (08:06)
[2018-06-30] MEDS: TAMSULOSIN 0.4 MG CAP.ER.24H PO SCH (08:06)
[2018-06-30] MEDS: FOLIC ACID 1 MG TABLET PO SCH (08:06)
[2018-06-30] MEDS: PANTOPROZOLE 40MG TABLET PO SCH (08:07)
[2018-06-30] MEDS: INSULIN LISPRO 100 UNITS/ML, PEN SQ-INSULIN SCH ×4 (08:07→20:56)
[2018-06-30] MEDS: SODIUM CHLORIDE FLUSH 10ML SYR IVF SCH ×2 (08:08→20:28)
[2018-06-30] MEDS: SENNA/DOCUSATE TABLET PO SCH (08:08)
[2018-06-30] MEDS: TIMOLOL OPHTH 0.5%, 5ML EACHEYE SCH ×2 (08:09→20:28)
[2018-06-30] MEDS: ERGOCALCIFEROL 50,000 UNIT CAPSULE PO SCH (12:42)
[2018-06-30] MEDS: BISACODYL 5 MG EC TABLET PO SCH (20:27)
[2018-06-30] MEDS: metFORMIN 500 MG TABLET PO SCH (20:27)
[2018-06-30] MEDS: LATANOPROST OPHTH 0.005%, 2.5ML RIGHTEYE SCH (20:27)
[2018-07-01] MEDS: GUAIFENESIN/DM 200-20MG, 10ML UDC PO PRN (03:14)
[2018-07-01 04:00] VITALS: BP 128/63
[2018-07-01 04:33] LABS: BASOPHILS # (AUTO) 0.02 x10^3/uL (0-0.1); BASOPHILS % (AUTO) 0 % (0-1); EOSINOPHILS # (AUTO) 0.13 x10^3/uL (0-0.4); EOSINOPHILS % (AUTO) 2 % (1-7); LYMPHOCYTES % (AUTO) 16 % (22-44); MD NO; MEAN CORPUSCULAR HEMOGLOBIN 30.5 pg (27.5-34.5); MEAN CORPUSCULAR HGB CONC 33.9 g/dL (33.2-36.2); MEAN CORPUSCULAR VOLUME 89.9 fL (81-97); MEAN PLATELET VOLUME 6.1 fL (7.4-10.4); MONOCYTES # (AUTO) 0.97 x10^3/uL (0.2-0.8); MONOCYTES % (AUTO) 12 % (2-9); NEUTROPHILS # (AUTO) 5.72 x10^3/uL (1.8-6.8); NEUTROPHILS % (AUTO) 70 % (42-75); PLATELET COUNT 238 x10^3/uL (130-400); RED BLOOD COUNT 3.43 x10^6/uL (4.38-5.82); RED CELL DISTRIBUTION WIDTH 16.3 % (9.4-14.8)
[2018-07-01 04:41] LABS: ANION GAP 5 mmol/L (5-15); CALCIUM 8.4 mg/dL (8.5-10.1); CHLORIDE 97 mmol/L (98-107); CREATININE 0.67 mg/dL (0.7-1.3)
[2018-07-01] MEDS: TIMOLOL OPHTH 0.5%, 5ML EACHEYE SCH ×2 (09:00→21:36)
[2018-07-01] MEDS: INSULIN LISPRO 100 UNITS/ML, PEN SQ-INSULIN SCH ×4 (09:27→21:00)
[2018-07-01] MEDS: PANTOPROZOLE 40MG TABLET PO SCH (09:29)
[2018-07-01] MEDS: SODIUM CHLORIDE FLUSH 10ML SYR IVF SCH ×2 (09:30→21:38)
[2018-07-01] MEDS: CITALOPRAM 10 MG TABLET PO SCH (09:30)
[2018-07-01] MEDS: FOLIC ACID 1 MG TABLET PO SCH (09:30)
[2018-07-01] MEDS: TAMSULOSIN 0.4 MG CAP.ER.24H PO SCH (09:30)
[2018-07-01] MEDS: SENNA/DOCUSATE TABLET PO SCH (09:31)
[2018-07-01] MEDS: LISINOPRIL 10 MG TABLET PO SCH (09:31)
[2018-07-01 20:00] VITALS: BP 147/69
[2018-07-01] MEDS: metFORMIN 500 MG TABLET PO SCH (21:36)
[2018-07-01] MEDS: BISACODYL 5 MG EC TABLET PO SCH (21:36)
[2018-07-01] MEDS: LATANOPROST OPHTH 0.005%, 2.5ML RIGHTEYE SCH (21:36)
[2018-07-02 02:00] VITALS: BP 144/64
[2018-07-02 05:42] LABS: BASOPHILS # (AUTO) 0.02 x10^3/uL (0-0.1); BASOPHILS % (AUTO) 0 % (0-1); EOSINOPHILS # (AUTO) 0.14 x10^3/uL (0-0.4); EOSINOPHILS % (AUTO) 2 % (1-7); LYMPHOCYTES # (AUTO) 1.52 x10^3/uL (1-3.4); LYMPHOCYTES % (AUTO) 17 % (22-44); MD NO; MEAN CORPUSCULAR HEMOGLOBIN 30.8 pg (27.5-34.5); MEAN CORPUSCULAR HGB CONC 34.4 g/dL (33.2-36.2); MEAN CORPUSCULAR VOLUME 89.7 fL (81-97); MEAN PLATELET VOLUME 6.8 fL (7.4-10.4); MONOCYTES # (AUTO) 0.92 x10^3/uL (0.2-0.8); MONOCYTES % (AUTO) 11 % (2-9); NEUTROPHILS # (AUTO) 6.21 x10^3/uL (1.8-6.8); NEUTROPHILS % (AUTO) 71 % (42-75); PLATELET COUNT 234 x10^3/uL (130-400); RED BLOOD COUNT 3.48 x10^6/uL (4.38-5.82); RED CELL DISTRIBUTION WIDTH 15.4 % (9.4-14.8)
[2018-07-02 05:43] LABS: ANION GAP 7 mmol/L (5-15); CALCIUM 8.3 mg/dL (8.5-10.1); CHLORIDE 97 mmol/L (98-107)
[2018-07-02 05:44] LABS: CREATININE 0.62 mg/dL (0.7-1.3)
[2018-07-02] MEDS: INSULIN LISPRO 100 UNITS/ML, PEN SQ-INSULIN SCH ×4 (07:00→21:08)
[2018-07-02] MEDS: FOLIC ACID 1 MG TABLET PO SCH (08:31)
[2018-07-02 08:32] VITALS: BP 132/78
[2018-07-02] MEDS: CITALOPRAM 10 MG TABLET PO SCH (08:32)
[2018-07-02] MEDS: TAMSULOSIN 0.4 MG CAP.ER.24H PO SCH (08:32)
[2018-07-02] MEDS: SENNA/DOCUSATE TABLET PO SCH (08:32)
[2018-07-02] MEDS: SODIUM CHLORIDE FLUSH 10ML SYR IVF SCH ×2 (08:32→21:10)
[2018-07-02] MEDS: LISINOPRIL 10 MG TABLET PO SCH (08:32)
[2018-07-02] MEDS: PANTOPROZOLE 40MG TABLET PO SCH (08:32)
[2018-07-02] MEDS: TIMOLOL OPHTH 0.5%, 5ML EACHEYE SCH ×2 (08:43→21:00)
[2018-07-02 14:38] VITALS: BP 147/71
[2018-07-02 20:03] VITALS: BP 120/74
[2018-07-02] MEDS: BISACODYL 5 MG EC TABLET PO SCH (21:00)
[2018-07-02] MEDS: LATANOPROST OPHTH 0.005%, 2.5ML RIGHTEYE SCH (21:00)
[2018-07-02] MEDS: metFORMIN 500 MG TABLET PO SCH (21:07)
[2018-07-02] MEDS: GUAIFENESIN/DM 200-20MG, 10ML UDC PO PRN (23:30)
[2018-07-03 01:51] VITALS: BP 153/71
[2018-07-03] MEDS: GUAIFENESIN/DM 200-20MG, 10ML UDC PO PRN (05:58)
[2018-07-03 06:17] LABS: BASOPHILS # (AUTO) 0.01 x10^3/uL (0-0.1); BASOPHILS % (AUTO) 0 % (0-1); EOSINOPHILS % (AUTO) 3 % (1-7); LYMPHOCYTES # (AUTO) 1.16 x10^3/uL (1-3.4); LYMPHOCYTES % (AUTO) 15 % (22-44); MD NO; MEAN CORPUSCULAR HEMOGLOBIN 29.8 pg (27.5-34.5); MEAN CORPUSCULAR HGB CONC 33.5 g/dL (33.2-36.2); MEAN PLATELET VOLUME 6.7 fL (7.4-10.4); MONOCYTES # (AUTO) 0.86 x10^3/uL (0.2-0.8); MONOCYTES % (AUTO) 11 % (2-9); NEUTROPHILS % (AUTO) 70 % (42-75); PLATELET COUNT 251 x10^3/uL (130-400); RED BLOOD COUNT 3.77 x10^6/uL (4.38-5.82)
[2018-07-03 06:27] LABS: ANION GAP 5 mmol/L (5-15); CALCIUM 8.8 mg/dL (8.5-10.1); CHLORIDE 96 mmol/L (98-107); CREATININE 0.57 mg/dL (0.7-1.3)
[2018-07-03] MEDS: INSULIN LISPRO 100 UNITS/ML, PEN SQ-INSULIN SCH ×4 (07:00→21:20)
[2018-07-03 08:19] VITALS: BP 144/69
[2018-07-03] MEDS: SENNA/DOCUSATE TABLET PO SCH (09:00)
[2018-07-03] MEDS: TIMOLOL OPHTH 0.5%, 5ML EACHEYE SCH ×2 (09:00→21:00)
[2018-07-03] MEDS: CITALOPRAM 10 MG TABLET PO SCH (09:49)
[2018-07-03] MEDS: LISINOPRIL 10 MG TABLET PO SCH (09:50)
[2018-07-03] MEDS: TAMSULOSIN 0.4 MG CAP.ER.24H PO SCH (09:51)
[2018-07-03] MEDS: PANTOPROZOLE 40MG TABLET PO SCH (09:52)
[2018-07-03] MEDS: FOLIC ACID 1 MG TABLET PO SCH (09:52)
[2018-07-03] MEDS: SODIUM CHLORIDE FLUSH 10ML SYR IVF SCH ×2 (09:53→21:20)
[2018-07-03 14:03] VITALS: BP 116/70
[2018-07-03 19:13] VITALS: BP 151/72
[2018-07-03] MEDS: LATANOPROST OPHTH 0.005%, 2.5ML RIGHTEYE SCH (21:19)
[2018-07-03] MEDS: metFORMIN 500 MG TABLET PO SCH (21:20)
[2018-07-03] MEDS: BISACODYL 5 MG EC TABLET PO SCH (21:20)
[2018-07-04 02:58] VITALS: BP 145/71
[2018-07-04 06:04] LABS: BASOPHILS # (AUTO) 0.02 x10^3/uL (0-0.1); BASOPHILS % (AUTO) 0 % (0-1); EOSINOPHILS # (AUTO) 0.19 x10^3/uL (0-0.4); EOSINOPHILS % (AUTO) 3 % (1-7); LYMPHOCYTES # (AUTO) 1.25 x10^3/uL (1-3.4); LYMPHOCYTES % (AUTO) 16 % (22-44); MD NO; MEAN CORPUSCULAR HEMOGLOBIN 30.5 pg (27.5-34.5); MEAN CORPUSCULAR HGB CONC 33.7 g/dL (33.2-36.2); MEAN CORPUSCULAR VOLUME 90.6 fL (81-97); MEAN PLATELET VOLUME 6.6 fL (7.4-10.4); MONOCYTES # (AUTO) 0.83 x10^3/uL (0.2-0.8); MONOCYTES % (AUTO) 11 % (2-9); NEUTROPHILS # (AUTO) 5.38 x10^3/uL (1.8-6.8); NEUTROPHILS % (AUTO) 70 % (42-75); PLATELET COUNT 250 x10^3/uL (130-400); RED BLOOD COUNT 3.56 x10^6/uL (4.38-5.82); RED CELL DISTRIBUTION WIDTH 15.4 % (9.4-14.8)
[2018-07-04 07:20] VITALS: BP 152/75
[2018-07-04] MEDS: INSULIN LISPRO 100 UNITS/ML, PEN SQ-INSULIN SCH ×3 (08:23→16:31)
[2018-07-04] MEDS: FOLIC ACID 1 MG TABLET PO SCH (10:39)
[2018-07-04] MEDS: TAMSULOSIN 0.4 MG CAP.ER.24H PO SCH (10:39)
[2018-07-04] MEDS: CITALOPRAM 10 MG TABLET PO SCH (10:39)
[2018-07-04] MEDS: LISINOPRIL 10 MG TABLET PO SCH (10:39)
[2018-07-04] MEDS: PANTOPROZOLE 40MG TABLET PO SCH (10:39)
[2018-07-04] MEDS: TIMOLOL OPHTH 0.5%, 5ML EACHEYE SCH (10:40)
[2018-07-04] MEDS: SENNA/DOCUSATE TABLET PO SCH (10:40)
[2018-07-04] MEDS: SODIUM CHLORIDE FLUSH 10ML SYR IVF SCH (10:40)
[2018-07-04 10:50] LABS: ANION GAP 7 mmol/L (5-15); CALCIUM 8.4 mg/dL (8.5-10.1); CHLORIDE 94 mmol/L (98-107); CREATININE 0.72 mg/dL (0.7-1.3)
[2018-07-04] MEDS ORDERED: ERGO500017 PO (14:09)
[2018-07-04 14:40] VITALS: BP 127/69
== END 2018-07-04 16:41 | DRG 25 ==
LOC: ED 16:10 → EDIP 17:25 → ICU 21:40 → 4NOR 06-23 18:41 → CCU 06-28 19:15 → 4EST 07-01 15:42
PROVIDERS: ADMIT Hospitalist; ATTEND Hospitalist
PROC: 0T9B70Z Drainage of Bladder with Drainage Device, Via Natural or Artificial Opening (ICD-10-PCS; 2018-06-22)
PROC: 009400Z Drainage of Intracranial Subdural Space with Drainage Device, Open Approach (ICD-10-PCS; principal; 2018-06-28 18:00)
DX: S06.5X0A Traumatic subdural hemorrhage without loss of consciousness, initial encounter (principal); E43 Unspecified severe protein-calorie malnutrition; F32.1 Major depressive disorder, single episode, moderate; R47.01 Aphasia; Z68.1 Body mass index [BMI] 19.9 or less, adult; E11.9 Type 2 diabetes mellitus without complications; H40.9 Unspecified glaucoma; I10 Essential (primary) hypertension; M06.9 Rheumatoid arthritis, unspecified; N40.0 Benign prostatic hyperplasia without lower urinary tract symptoms; W18.30XA Fall on same level, unspecified, initial encounter; Y93.89 Activity, other specified; Y92.89 Other specified places as the place of occurrence of the external cause; Y99.8 Other external cause status; Z79.52 Long term (current) use of systemic steroids; Z79.84 Long term (current) use of oral hypoglycemic drugs; Z79.899 Other long term (current) drug therapy; Z91.81 History of falling
CPT/HCPCS: 36415; 70450; 71045; 80048; 80053; 81001; 82040; 82306; 82607; 82962; 83735; 84100; 84443; 85025; 85610; 85730; 87081; 87086; 93005; 99291; G0378; J0690; J1100; J2405; J2704; J2710; J3010; J3490; J7042; J7512; 92523-GN; C9113; J0330; J0360; J1815; J3475; J7030

== ENCOUNTER 2018-07-06 16:57 | Emergency (ER) | payer MEDICARE ==
[~2018-07-06] VITALS: Ht 165.1 cm; Wt 70.0 kg
[~2018-07-06 16:57] MED LIST changes: +BISA5TAB5 PO; +CITA10TA4 PO; +ERGO500017 PO; +LATA7.5D EACHEYE; +TIMO5DRO33 EACHEYE
[2018-07-06 17:59] LABS: MICROSCOPIC INDICATED
[2018-07-06 18:00] LABS: CULTURE INDICATED? YES
[2018-07-06 18:08] LABS: BASOPHILS # (AUTO) 0.02 x10^3/uL (0-0.1); BASOPHILS % (AUTO) 0 % (0-1); EOSINOPHILS # (AUTO) 0.05 x10^3/uL (0-0.4); EOSINOPHILS % (AUTO) 1 % (1-7); LYMPHOCYTES # (AUTO) 1.25 x10^3/uL (1-3.4); LYMPHOCYTES % (AUTO) 13 % (22-44); MD NO; MEAN CORPUSCULAR HEMOGLOBIN 30.3 pg (27.5-34.5); MEAN CORPUSCULAR HGB CONC 33.8 g/dL (33.2-36.2); MEAN CORPUSCULAR VOLUME 89.5 fL (81-97); MEAN PLATELET VOLUME 6.4 fL (7.4-10.4); MONOCYTES # (AUTO) 0.66 x10^3/uL (0.2-0.8); MONOCYTES % (AUTO) 7 % (2-9); NEUTROPHILS # (AUTO) 7.65 x10^3/uL (1.8-6.8); NEUTROPHILS % (AUTO) 80 % (42-75); PLATELET COUNT 269 x10^3/uL (130-400); RED BLOOD COUNT 3.96 x10^6/uL (4.38-5.82); RED CELL DISTRIBUTION WIDTH 15.9 % (9.4-14.8)
[2018-07-06 18:15] LABS: ALBUMIN 2.6 g/dL (3.4-5.0); ANION GAP 11 mmol/L (5-15); CALCIUM 8.9 mg/dL (8.5-10.1); CHLORIDE 93 mmol/L (98-107); CREATININE 0.79 mg/dL (0.7-1.3)
[2018-07-06] MEDS ORDERED: CEFTRIAXONE PMX 1GM/50ML 50 ML IV ONE (19:00)
[2018-07-06] MEDS ORDERED: CEFTRIAXONE PMX 1GM/50ML 50 ML ONE (19:10)
[2018-07-06 20:17] VITALS: BP 121/62
== END 2018-07-06 20:59 | disposition home or self-care (01) ==
LOC: ED 20:54
DX: N30.00 Acute cystitis without hematuria (principal); R41.82 Altered mental status, unspecified; E11.9 Type 2 diabetes mellitus without complications; I10 Essential (primary) hypertension; M06.9 Rheumatoid arthritis, unspecified
CPT/HCPCS: 36415; 70450; 80048; 81001; 82040; 85025; 87077; 87086; 87186; 96365; 99285; J0696

== ENCOUNTER 2018-09-12 17:35 | Emergency (ER) | payer MEDICARE ==
[~2018-09-12] VITALS: Ht 167.6 cm; Wt 53.0 kg
[~2018-09-12 17:35] MED LIST changes: +HYDR-3653 PO; -HYDR-882 PO
[2018-09-12 19:06] VITALS: BP 174/91
== END 2018-09-12 19:14 | disposition home or self-care (01) ==
LOC: ED 18:42
DX: S01.01XA Laceration without foreign body of scalp, initial encounter (principal); G89.29 Other chronic pain; I10 Essential (primary) hypertension; E11.9 Type 2 diabetes mellitus without complications; W19.XXXA Unspecified fall, initial encounter; Y93.89 Activity, other specified; Y92.009 Unspecified place in unspecified non-institutional (private) residence as the place of occurrence of the external cause; Y99.8 Other external cause status
CPT/HCPCS: 12001; 70450; 99284

== ENCOUNTER 2018-09-29 10:04 | Inpatient (IN) | payer MEDICARE ==
[~2018-09-29] VITALS: Ht 167.6 cm; Wt 50.8 kg
[~2018-09-29 10:04] MED LIST changes: +AMLO-150 PO; -AMLO5TAB7 PO
[2018-09-29 10:53] LABS: MICROSCOPIC AUTO
[2018-09-29 11:00] LABS: CULTURE INDICATED? YES
[2018-09-29] MEDS ORDERED: SODIUM CHLORIDE FLUSH 10ML SYR IVF ONE (11:00)
[2018-09-29 11:02] LABS: ALBUMIN 3.5 g/dL (3.4-5.0); ANION GAP 8 mmol/L (5-15); CALCIUM 8.9 mg/dL (8.5-10.1); CHLORIDE 100 mmol/L (98-107); CREATININE 0.69 mg/dL (0.7-1.3)
[2018-09-29 11:06] LABS: TROPONIN I 0.023 ng/mL (0.000-0.045)
[2018-09-29 11:45] LABS: BASOPHILS # (AUTO) 0.01 x10^3/uL (0-0.1); BASOPHILS % (AUTO) 0 % (0-1); EOSINOPHILS # (AUTO) 0.29 x10^3/uL (0-0.4); EOSINOPHILS % (AUTO) 4 % (1-7); LYMPHOCYTES # (AUTO) 0.83 x10^3/uL (1-3.4); LYMPHOCYTES % (AUTO) 11 % (22-44); MD NO; MEAN CORPUSCULAR HEMOGLOBIN 29.8 pg (27.5-34.5); MEAN CORPUSCULAR VOLUME 90.2 fL (81-97); MEAN PLATELET VOLUME 7.1 fL (7.4-10.4); MONOCYTES # (AUTO) 0.66 x10^3/uL (0.2-0.8); MONOCYTES % (AUTO) 8 % (2-9); NEUTROPHILS # (AUTO) 6.03 x10^3/uL (1.8-6.8); NEUTROPHILS % (AUTO) 77 % (42-75); PLATELET COUNT 219 x10^3/uL (130-400); RED BLOOD COUNT 4.42 x10^6/uL (4.38-5.82); RED CELL DISTRIBUTION WIDTH 15.2 % (9.4-14.8)
[2018-09-29] MEDS ORDERED: PARO30TA3 PO (12:27)
[2018-09-29] MEDS ORDERED: VENL37.58 PO (12:27)
[2018-09-29] MEDS ORDERED: FINA5TAB4 PO (12:27)
[2018-09-29] MEDS ORDERED: ACET325T14 PO (12:27)
[2018-09-29] MEDS ORDERED: ERGOCALCIFEROL 50,000 UNIT CAPSULE PO SCH (13:00)
[2018-09-29] MEDS ORDERED: GLUCAGON 1 MG IM PRN (13:00)
[2018-09-29] MEDS ORDERED: hydrALAzine 20 MG/ML, 1ML IV PRN (13:00)
[2018-09-29] MEDS ORDERED: DEXTROSE 50%, 50ML SYRINGE IVPush PRN (13:00)
[2018-09-29] MEDS ORDERED: DEXTROSE 4 GM TAB.CHEW PO PRN (13:00)
[2018-09-29 13:29] VITALS: BP 151/75
[2018-09-29] MEDS ORDERED: SODIUM CHLORIDE 0.9% 1,000 ML IV SCH (13:30)
[2018-09-29] MEDS ORDERED: [UNRECOGNIZED DRUG - REMARK] MC SCH (14:00)
[2018-09-29 14:01] LABS: THYROID STIMULATING HORMONE 0.64 mIU/L (0.358-3.740)
[2018-09-29] MEDS: CEFTRIAXONE PMX 1GM/50ML 50 ML IV SCH (14:23)
[2018-09-29 14:35] VITALS: BP 122/77
[2018-09-29 14:40] VITALS: BP 101/61
[2018-09-29 14:45] VITALS: BP 90/63
[2018-09-29] MEDS ORDERED: GLIM4TAB2 PO (15:30)
[2018-09-29] MEDS ORDERED: TIMO5DRO37 OP (15:30)
[2018-09-29] MEDS: INSULIN LISPRO 100 UNITS/ML, PEN SQ-INSULIN SCH ×2 (16:00→21:00)
[2018-09-29] MEDS: ACETAMINOPHEN 325 MG TABLET PO SCH ×2 (17:46→21:31)
[2018-09-29 19:35] VITALS: BP 109/58
[2018-09-29] MEDS: TIMOLOL OPHTH 0.5%, 5ML EACHEYE SCH (21:29)
[2018-09-29] MEDS: LATANOPROST OPHTH 0.005%, 2.5ML EACHEYE SCH (21:29)
[2018-09-29] MEDS: SODIUM CHLORIDE FLUSH 10ML SYR IVF SCH (21:30)
[2018-09-30] VITALS (12 sets, daily range): BP systolic 86–170; BP diastolic 46–79
[2018-09-30] MEDS ORDERED: DEXTROSE 10% 1,000 ML IV SCH (02:00)
[2018-09-30 05:03] LABS: BASOPHILS # (AUTO) 0.01 x10^3/uL (0-0.1); BASOPHILS % (AUTO) 0 % (0-1); EOSINOPHILS # (AUTO) 0.54 x10^3/uL (0-0.4); EOSINOPHILS % (AUTO) 6 % (1-7); LYMPHOCYTES # (AUTO) 1.11 x10^3/uL (1-3.4); LYMPHOCYTES % (AUTO) 13 % (22-44); MD NO; MEAN CORPUSCULAR HEMOGLOBIN 30.3 pg (27.5-34.5); MEAN CORPUSCULAR HGB CONC 33.3 g/dL (33.2-36.2); MEAN CORPUSCULAR VOLUME 90.9 fL (81-97); MONOCYTES # (AUTO) 0.67 x10^3/uL (0.2-0.8); MONOCYTES % (AUTO) 8 % (2-9); NEUTROPHILS # (AUTO) 6.06 x10^3/uL (1.8-6.8); NEUTROPHILS % (AUTO) 72 % (42-75); PLATELET COUNT 221 x10^3/uL (130-400); RED BLOOD COUNT 3.95 x10^6/uL (4.38-5.82); RED CELL DISTRIBUTION WIDTH 15.4 % (9.4-14.8)
[2018-09-30 05:10] LABS: ANION GAP 6 mmol/L (5-15); CALCIUM 8.2 mg/dL (8.5-10.1); CHLORIDE 102 mmol/L (98-107); CREATININE 0.59 mg/dL (0.7-1.3)
[2018-09-30] MEDS: ACETAMINOPHEN 325 MG TABLET PO SCH ×4 (05:36→20:27)
[2018-09-30] MEDS: INSULIN LISPRO 100 UNITS/ML, PEN SQ-INSULIN SCH ×4 (07:00→20:28)
[2018-09-30] MEDS ORDERED: PAROXETINE 20 MG TABLET ONE (08:51)
[2018-09-30] MEDS ORDERED: LISINOPRIL 10 MG TABLET PO SCH (09:00)
[2018-09-30] MEDS: FOLIC ACID 1 MG TABLET PO SCH (09:08)
[2018-09-30] MEDS: VENLAFAXINE XR 37.5MG CAP.ER.24H PO SCH (09:08)
[2018-09-30] MEDS: TAMSULOSIN 0.4 MG CAP.ER.24H PO SCH (09:08)
[2018-09-30] MEDS: PAROXETINE 10 MG TABLET PO SCH (09:09)
[2018-09-30] MEDS: FINASTERIDE 5 MG TABLET PO SCH (09:09)
[2018-09-30] MEDS: SODIUM CHLORIDE FLUSH 10ML SYR IVF SCH ×2 (09:09→20:28)
[2018-09-30] MEDS: TIMOLOL OPHTH 0.5%, 5ML EACHEYE SCH ×2 (10:05→20:27)
[2018-09-30] MEDS: CEFTRIAXONE PMX 1GM/50ML 50 ML IV SCH (13:46)
[2018-09-30] MEDS: LATANOPROST OPHTH 0.005%, 2.5ML EACHEYE SCH (20:28)
[2018-10-01 00:35] VITALS: BP 152/72
[2018-10-01] MEDS ORDERED: DEXTROSE 10% 1,000 ML IV SCH ×2 (02:00)
[2018-10-01] MEDS ORDERED: DEXTROSE 5% 1,000 ML IV SCH (03:00)
[2018-10-01] MEDS: ACETAMINOPHEN 325 MG TABLET PO SCH ×4 (05:39→21:06)
[2018-10-01 06:41] VITALS: BP_SYST 113; BP_SYST 123; BP_SYST 137; BP_DIAS 62; BP_DIAS 66; BP_DIAS 69
[2018-10-01] MEDS: INSULIN LISPRO 100 UNITS/ML, PEN SQ-INSULIN SCH ×4 (07:00→21:00)
[2018-10-01] MEDS ORDERED: PAROXETINE 20 MG TABLET ONE (07:11)
[2018-10-01] MEDS: TAMSULOSIN 0.4 MG CAP.ER.24H PO SCH (07:18)
[2018-10-01] MEDS: FINASTERIDE 5 MG TABLET PO SCH (07:18)
[2018-10-01] MEDS: VENLAFAXINE XR 37.5MG CAP.ER.24H PO SCH (07:18)
[2018-10-01] MEDS: PAROXETINE 10 MG TABLET PO SCH (07:18)
[2018-10-01] MEDS: FOLIC ACID 1 MG TABLET PO SCH (07:18)
[2018-10-01] MEDS: TIMOLOL OPHTH 0.5%, 5ML EACHEYE SCH ×2 (07:18→21:07)
[2018-10-01] MEDS: SODIUM CHLORIDE FLUSH 10ML SYR IVF SCH ×2 (07:19→21:00)
[2018-10-01 12:28] VITALS: BP_SYST 118; BP_SYST 124; BP_SYST 144; BP_DIAS 62; BP_DIAS 70; BP_DIAS 71
[2018-10-01] MEDS: CEFTRIAXONE PMX 1GM/50ML 50 ML IV SCH (14:06)
[2018-10-01] MEDS: DEXTROSE 5% 1,000 ML IV SCH (18:29)
[2018-10-01 19:35] VITALS: BP 163/70
[2018-10-01 19:39] VITALS: BP 171/83
[2018-10-01 19:45] VITALS: BP 149/80
[2018-10-01] MEDS: LATANOPROST OPHTH 0.005%, 2.5ML EACHEYE SCH (21:07)
[2018-10-01] MEDS: GUAIFENESIN/DM 100-10MG, 5ML UDC PO PRN (21:43)
[2018-10-02 01:55] VITALS: BP 146/74
[2018-10-02] MEDS: ACETAMINOPHEN 325 MG TABLET PO SCH ×4 (05:25→19:49)
[2018-10-02] MEDS: DEXTROSE 5% 1,000 ML IV SCH (05:25)
[2018-10-02] MEDS: GUAIFENESIN/DM 100-10MG, 5ML UDC PO PRN ×2 (05:28→16:22)
[2018-10-02 07:00] VITALS: BP 179/85
[2018-10-02] MEDS: INSULIN LISPRO 100 UNITS/ML, PEN SQ-INSULIN SCH ×4 (08:00→19:49)
[2018-10-02 08:08] LABS: INTERNATIONAL NORMALIZED RATIO 1.06 (0.93-1.1); PROTHROMBIN TIME 11.2 Seconds (9.6-11.5)
[2018-10-02] MEDS: FINASTERIDE 5 MG TABLET PO SCH (08:37)
[2018-10-02] MEDS: PAROXETINE 10 MG TABLET PO SCH (08:37)
[2018-10-02] MEDS: VENLAFAXINE XR 37.5MG CAP.ER.24H PO SCH (08:37)
[2018-10-02] MEDS: SODIUM CHLORIDE FLUSH 10ML SYR IVF SCH ×2 (08:38→19:48)
[2018-10-02] MEDS: FOLIC ACID 1 MG TABLET PO SCH (08:38)
[2018-10-02] MEDS: TAMSULOSIN 0.4 MG CAP.ER.24H PO SCH (08:38)
[2018-10-02] MEDS: TIMOLOL OPHTH 0.5%, 5ML EACHEYE SCH ×2 (08:38→19:48)
[2018-10-02 08:57] VITALS: BP_SYST 107; BP_SYST 141; BP_DIAS 57; BP_DIAS 67
[2018-10-02] MEDS ORDERED: ERTAPENEM 1 GM in SODIUM CHLORIDE 0.9% 50 ML IV SCH (11:00)
[2018-10-02 12:46] VITALS: BP 114/56
[2018-10-02] MEDS ORDERED: METHOTREXATE 2.5 MG TABLET PO SCH (13:00)
[2018-10-02] MEDS: SODIUM CHLORIDE 0.9% 1,000 ML IV SCH (15:59)
[2018-10-02] MEDS: CEFTAZIDIME 1,000 MG in SODIUM CHLORIDE 0.9% 50 ML IV SCH (15:59)
[2018-10-02] MEDS: metFORMIN 500 MG TABLET PO SCH (17:13)
[2018-10-02] MEDS: LATANOPROST OPHTH 0.005%, 2.5ML EACHEYE SCH (19:48)
[2018-10-02 20:00] VITALS: BP 136/78
[2018-10-03] VITALS (7 sets, daily range): BP systolic 119–174; BP diastolic 64–85
[2018-10-03] MEDS: SODIUM CHLORIDE 0.9% 1,000 ML IV SCH ×3 (01:19→20:21)
[2018-10-03] MEDS: CEFTAZIDIME 1,000 MG in SODIUM CHLORIDE 0.9% 50 ML IV SCH ×2 (02:51→15:16)
[2018-10-03 05:06] LABS: BASOPHILS # (AUTO) 0.02 x10^3/uL (0-0.1); BASOPHILS % (AUTO) 0 % (0-1); EOSINOPHILS # (AUTO) 0.55 x10^3/uL (0-0.4); EOSINOPHILS % (AUTO) 9 % (1-7); LYMPHOCYTES # (AUTO) 1.16 x10^3/uL (1-3.4); LYMPHOCYTES % (AUTO) 19 % (22-44); MD NO; MEAN CORPUSCULAR HEMOGLOBIN 30.6 pg (27.5-34.5); MEAN CORPUSCULAR HGB CONC 34.1 g/dL (33.2-36.2); MEAN CORPUSCULAR VOLUME 89.6 fL (81-97); MEAN PLATELET VOLUME 6.7 fL (7.4-10.4); MONOCYTES # (AUTO) 0.75 x10^3/uL (0.2-0.8); MONOCYTES % (AUTO) 12 % (2-9); NEUTROPHILS # (AUTO) 3.65 x10^3/uL (1.8-6.8); NEUTROPHILS % (AUTO) 60 % (42-75); PLATELET COUNT 207 x10^3/uL (130-400); RED BLOOD COUNT 3.67 x10^6/uL (4.38-5.82); RED CELL DISTRIBUTION WIDTH 15.3 % (9.4-14.8)
[2018-10-03 05:12] LABS: ANION GAP 7 mmol/L (5-15); CALCIUM 8.2 mg/dL (8.5-10.1); CHLORIDE 100 mmol/L (98-107); CREATININE 0.72 mg/dL (0.7-1.3)
[2018-10-03] MEDS: ACETAMINOPHEN 325 MG TABLET PO SCH ×4 (05:21→20:16)
[2018-10-03] MEDS: INSULIN LISPRO 100 UNITS/ML, PEN SQ-INSULIN SCH ×4 (07:00→20:18)
[2018-10-03] MEDS: FINASTERIDE 5 MG TABLET PO SCH (08:25)
[2018-10-03] MEDS: PAROXETINE 10 MG TABLET PO SCH (08:25)
[2018-10-03] MEDS: metFORMIN 500 MG TABLET PO SCH ×2 (08:26→18:29)
[2018-10-03] MEDS: TAMSULOSIN 0.4 MG CAP.ER.24H PO SCH (08:26)
[2018-10-03] MEDS: FOLIC ACID 1 MG TABLET PO SCH (08:26)
[2018-10-03] MEDS: VENLAFAXINE XR 37.5MG CAP.ER.24H PO SCH (08:26)
[2018-10-03] MEDS: TIMOLOL OPHTH 0.5%, 5ML EACHEYE SCH ×2 (08:29→20:16)
[2018-10-03] MEDS: SODIUM CHLORIDE FLUSH 10ML SYR IVF SCH ×2 (08:29→20:16)
[2018-10-03] MEDS: GUAIFENESIN/DM 100-10MG, 5ML UDC PO PRN (20:16)
[2018-10-03] MEDS: LATANOPROST OPHTH 0.005%, 2.5ML EACHEYE SCH (20:16)
[2018-10-04 02:08] VITALS: BP 157/73
[2018-10-04] MEDS: CEFTAZIDIME 1,000 MG in SODIUM CHLORIDE 0.9% 50 ML IV SCH ×2 (03:22→17:16)
[2018-10-04] MEDS: SODIUM CHLORIDE 0.9% 1,000 ML IV SCH (05:49)
[2018-10-04] MEDS: ACETAMINOPHEN 325 MG TABLET PO SCH ×4 (05:49→21:15)
[2018-10-04 05:52] LABS: ANION GAP 6 mmol/L (5-15); CALCIUM 8.3 mg/dL (8.5-10.1); CHLORIDE 101 mmol/L (98-107)
[2018-10-04 05:54] LABS: CREATININE 0.63 mg/dL (0.7-1.3)
[2018-10-04] MEDS: INSULIN LISPRO 100 UNITS/ML, PEN SQ-INSULIN SCH ×4 (07:00→21:20)
[2018-10-04 07:15] VITALS: BP_SYST 170; BP_SYST 185; BP_DIAS 82; BP_DIAS 90
[2018-10-04] MEDS: VENLAFAXINE XR 37.5MG CAP.ER.24H PO SCH (08:06)
[2018-10-04] MEDS: TAMSULOSIN 0.4 MG CAP.ER.24H PO SCH (08:06)
[2018-10-04] MEDS: metFORMIN 500 MG TABLET PO SCH ×2 (08:06→17:16)
[2018-10-04] MEDS: FINASTERIDE 5 MG TABLET PO SCH (08:06)
[2018-10-04] MEDS: FOLIC ACID 1 MG TABLET PO SCH (08:07)
[2018-10-04] MEDS: PAROXETINE 10 MG TABLET PO SCH (08:07)
[2018-10-04 08:13] VITALS: BP 160/83
[2018-10-04] MEDS: SODIUM CHLORIDE FLUSH 10ML SYR IVF SCH ×2 (10:00→21:00)
[2018-10-04] MEDS: TIMOLOL OPHTH 0.5%, 5ML EACHEYE SCH ×2 (10:00→21:17)
[2018-10-04] MEDS ORDERED: LACT1TAB13 PO (10:33)
[2018-10-04] MEDS ORDERED: CIPR500T87 PO (10:33)
[2018-10-04] MEDS ORDERED: GLIM1TAB PO (10:38)
[2018-10-04] MEDS: LACTOBACILLUS 1GM/ PACKET PO SCH ×3 (12:00→21:17)
[2018-10-04] MEDS: CIPROFLOXACIN 500 MG TABLET PO SCH ×2 (12:00→21:17)
[2018-10-04 12:47] VITALS: BP 140/44
[2018-10-04 20:10] VITALS: BP 138/75
[2018-10-04] MEDS: LATANOPROST OPHTH 0.005%, 2.5ML EACHEYE SCH (21:17)
[2018-10-05 01:53] VITALS: BP 161/81
[2018-10-05] MEDS: CEFTAZIDIME 1,000 MG in SODIUM CHLORIDE 0.9% 50 ML IV SCH (05:12)
[2018-10-05] MEDS: ACETAMINOPHEN 325 MG TABLET PO SCH ×2 (05:16→11:00)
[2018-10-05] MEDS: INSULIN LISPRO 100 UNITS/ML, PEN SQ-INSULIN SCH ×2 (07:00→11:00)
[2018-10-05 07:24] VITALS: BP 165/82
[2018-10-05] MEDS ORDERED: GLIMEPIRIDE 1 MG TABLET PO SCH (08:00)
[2018-10-05] MEDS: PAROXETINE 10 MG TABLET PO SCH (09:00)
[2018-10-05] MEDS ORDERED: PAROXETINE 20 MG TABLET ONE (09:12)
[2018-10-05 09:19] VITALS: BP_SYST 139; BP_SYST 143; BP_SYST 147; BP_DIAS 62; BP_DIAS 65; BP_DIAS 71
[2018-10-05] MEDS: metFORMIN 500 MG TABLET PO SCH (09:25)
[2018-10-05] MEDS: FINASTERIDE 5 MG TABLET PO SCH (09:26)
[2018-10-05] MEDS: VENLAFAXINE XR 37.5MG CAP.ER.24H PO SCH (09:27)
[2018-10-05] MEDS: FOLIC ACID 1 MG TABLET PO SCH (09:27)
[2018-10-05] MEDS: LACTOBACILLUS 1GM/ PACKET PO SCH (09:27)
[2018-10-05] MEDS: CIPROFLOXACIN 500 MG TABLET PO SCH (09:27)
[2018-10-05] MEDS: TAMSULOSIN 0.4 MG CAP.ER.24H PO SCH (09:27)
[2018-10-05] MEDS: TIMOLOL OPHTH 0.5%, 5ML EACHEYE SCH (09:29)
[2018-10-05] MEDS: SODIUM CHLORIDE FLUSH 10ML SYR IVF SCH (09:39)
[2018-10-05] MEDS: GUAIFENESIN/DM 100-10MG, 5ML UDC PO PRN (09:39)
== END 2018-10-05 13:28 | DRG 871 ==
LOC: ED 10:16 → EDIP 12:22 → OBSVTOIN 12:22 → INTOOBSV 12:22 → 5SO 13:11
PROVIDERS: ADMIT Hospitalist; ATTEND Hospitalist
DX: A41.52 Sepsis due to Pseudomonas (principal); E43 Unspecified severe protein-calorie malnutrition; G93.41 Metabolic encephalopathy; N39.0 Urinary tract infection, site not specified; E87.1 Hypo-osmolality and hyponatremia; I95.1 Orthostatic hypotension; F45.8 Other somatoform disorders; B96.89 Other specified bacterial agents as the cause of diseases classified elsewhere; R53.81 Other malaise; B96.5 Pseudomonas (aeruginosa) (mallei) (pseudomallei) as the cause of diseases classified elsewhere; D64.9 Anemia, unspecified; E11.649 Type 2 diabetes mellitus with hypoglycemia without coma; F32.9 Major depressive disorder, single episode, unspecified; H40.9 Unspecified glaucoma; I10 Essential (primary) hypertension; I35.8 Other nonrheumatic aortic valve disorders; I65.21 Occlusion and stenosis of right carotid artery; M06.9 Rheumatoid arthritis, unspecified; N40.1 Benign prostatic hyperplasia with lower urinary tract symptoms; R32 Unspecified urinary incontinence; Z66 Do not resuscitate; W18.39XA Other fall on same level, initial encounter; Y93.89 Activity, other specified; Y92.128 Other place in nursing home as the place of occurrence of the external cause; Y99.8 Other external cause status; G90.8 Other disorders of autonomic nervous system
CPT/HCPCS: 36415; 70450; 71045; 80048; 81001; 82040; 82607; 82962; 83036; 83735; 84443; 84484; 85025; 85610; 87077; 87086; 87186; 93005; 93306; 93880; 99285; G0378; J0696; J0713; J1335; J7070; J8610; J0360; J7030

== ENCOUNTER 2018-11-28 10:03 | Inpatient (IN) | payer MEDICARE ==
[~2018-11-28] VITALS: Ht 167.6 cm; Wt 52.9 kg
[~2018-11-28 10:03] MED LIST changes: +ACET325T14 PO; +CIPR500T87 PO; +FINA5TAB4 PO; +GLIM1TAB PO; +GLIM4TAB2 PO; +LACT1TAB13 PO; +PARO30TA3 PO; +TIMO5DRO37 OP; +VENL37.58 PO
--- NOTE | 2018-11-28 10:50 | NUR ---
MD TO BEDSIDE TO ASSESS PT. AWAITING ORDERS AT THIS TIME
[2018-11-28] MEDS ORDERED: ACETAMINOPHEN 325 MG TABLET PO ONE (11:00)
[2018-11-28] MEDS ORDERED: ACETAMINOPHEN 325 MG TABLET ONE (11:16)
[2018-11-28 11:21] LABS: BASOPHILS # (AUTO) 0.01 x10^3/uL (0-0.1); BASOPHILS % (AUTO) 0 % (0-1); EOSINOPHILS # (AUTO) 0.04 x10^3/uL (0-0.4); EOSINOPHILS % (AUTO) 0 % (1-7); LYMPHOCYTES # (AUTO) 0.81 x10^3/uL (1-3.4); LYMPHOCYTES % (AUTO) 7 % (22-44); MD NO; MEAN CORPUSCULAR HEMOGLOBIN 29.6 pg (27.5-34.5); MEAN CORPUSCULAR HGB CONC 33.7 g/dL (33.2-36.2); MEAN CORPUSCULAR VOLUME 87.9 fL (81-97); MONOCYTES # (AUTO) 0.61 x10^3/uL (0.2-0.8); MONOCYTES % (AUTO) 5 % (2-9); NEUTROPHILS # (AUTO) 9.77 x10^3/uL (1.8-6.8); NEUTROPHILS % (AUTO) 87 % (42-75); PLATELET COUNT 201 x10^3/uL (130-400); RED BLOOD COUNT 4.22 x10^6/uL (4.38-5.82); RED CELL DISTRIBUTION WIDTH 14.4 % (9.4-14.8)
[2018-11-28 11:32] LABS: INTERNATIONAL NORMALIZED RATIO 1.13 (0.93-1.1); PROTHROMBIN TIME 11.9 Seconds (9.6-11.5)
--- NOTE | 2018-11-28 11:32 | NUR ---
PER , OK TO CLEAN CATCH IN URINAL. PT PROVIDED WITH WIPES, URINAL APPROPRIATE INSTRUCTIONS. AWAITING SAMPLE AT THIS TIME. MEDICATED PER DEC. VSS. CALL LIGHT WITHIN REACH.
[2018-11-28 11:34] LABS: ALBUMIN 2.8 g/dL (3.4-5.0); ANION GAP 8 mmol/L (5-15); CALCIUM 8.8 mg/dL (8.5-10.1); CHLORIDE 96 mmol/L (98-107)
[2018-11-28 11:38] LABS: ALANINE AMINOTRANSFERASE 10 U/L (12-78); ALKALINE PHOSPHATASE 42 U/L (45-117); BILIRUBIN,TOTAL 1.2 mg/dL (0.2-1.0); CREATININE 0.99 mg/dL (0.7-1.3); TOTAL PROTEIN 7.4 g/dL (6.4-8.2)
--- NOTE | 2018-11-28 11:54 | NUR ---
PT UNABLE TO VOID FOR UA. WILL STRAIGHT CATH.
--- NOTE | 2018-11-28 12:19 | NUR ---
UA COLLECTED AND SENT.
[2018-11-28 12:29] LABS: MICROSCOPIC INDICATED
[2018-11-28 12:44] LABS: CULTURE INDICATED? NO
--- NOTE | 2018-11-28 13:31 | NUR ---
attempted to ambulate per edmd order. pt failed road test. pt unable to sit eob without max assist. pt resting in room with eyes closed. call light within reach.
[2018-11-28] MEDS ORDERED: SODIUM CHLORIDE 0.9% 1,000 ML IV ONE (14:00)
--- NOTE | 2018-11-28 14:17 | NUR ---
additional orders received. awaiting ct.
--- NOTE | 2018-11-28 14:45 | NUR ---
pt back from ct. awaiting results at this time. pt resting in room with family at bedside. call light within reach.
--- NOTE | 2018-11-28 15:30 | NUR ---
BREAK RN: pt upright on gurney awake & comfortable, responds approp to staff, NAD, comfort measures provided, call light within reach.
--- NOTE | 2018-11-28 15:42 | NUR ---
Pt to be admitted to [facility], room 427-2. Report called to Yolanda.
[2018-11-28] MEDS ORDERED: ACETAMINOPHEN 325 MG TABLET PO PRN (16:00)
[2018-11-28] MEDS ORDERED: ONDANSETRON 2MG/ML, 2ML IVPush PRN (16:00)
[2018-11-28] MEDS ORDERED: BISACODYL 10 MG SUPP PR PRN (16:00)
[2018-11-28] MEDS ORDERED: GABAPENTIN 300 MG CAPSULE PO PRN (16:00)
[2018-11-28] MEDS ORDERED: LABETALOL 5MG/ML, 20ML IVPush PRN (16:00)
[2018-11-28] MEDS ORDERED: PROMETHAZINE 25 MG/ML, 1ML IM PRN (16:00)
[2018-11-28] MEDS ORDERED: DOCUSATE 100 MG CAPSULE PO PRN (16:00)
[2018-11-28] MEDS ORDERED: ONDANSETRON ODT 4 MG PO PRN (16:00)
[2018-11-28] MEDS ORDERED: POLYETHYLENE GLYCOL 17 GM PACKET PO PRN (16:00)
[2018-11-28] MEDS: INSULIN LISPRO 100 UNITS/ML, PEN SQ-INSULIN SCH ×2 (16:30→20:51)
[2018-11-28] MEDS: SODIUM CHLORIDE 0.9% 1,000 ML IV SCH (16:35)
[2018-11-28 16:40] VITALS: BP 100/53
[2018-11-28] MEDS: ENOXAPARIN 40 MG/0.4 ML SQ SCH (17:01)
[2018-11-28 18:27] LABS: FREE T4 (FREE THYROXINE) 1.17 ng/dL (0.76-1.46); THYROID STIMULATING HORMONE 0.573 mIU/L (0.358-3.740)
[2018-11-28 18:46] LABS: HEMOGLOBIN A1C 5.6 % (4.2-6.3)
[2018-11-28 20:58] VITALS: BP 134/73
[2018-11-29 01:07] VITALS: BP 151/85
[2018-11-29] MEDS: SODIUM CHLORIDE 0.9% 1,000 ML IV SCH ×2 (02:21→11:32)
[2018-11-29] MEDS ORDERED: PERMETHRIN CRM 5%, 60GM TP SCH (03:00)
[2018-11-29 06:05] LABS: CALCIUM 8.1 mg/dL (8.5-10.1); CHLORIDE 98 mmol/L (98-107)
[2018-11-29 06:08] LABS: BASOPHILS # (AUTO) 0.01 x10^3/uL (0-0.1); BASOPHILS % (AUTO) 0 % (0-1); EOSINOPHILS # (AUTO) 0.27 x10^3/uL (0-0.4); EOSINOPHILS % (AUTO) 3 % (1-7); HEMOGRAM NOTE RECHECKED; LYMPHOCYTES # (AUTO) 1.22 x10^3/uL (1-3.4); LYMPHOCYTES % (AUTO) 14 % (22-44); MD NO; MEAN CORPUSCULAR HEMOGLOBIN 29.4 pg (27.5-34.5); MEAN CORPUSCULAR HGB CONC 33.1 g/dL (33.2-36.2); MEAN CORPUSCULAR VOLUME 88.7 fL (81-97); MEAN PLATELET VOLUME 6.4 fL (7.4-10.4); MONOCYTES # (AUTO) 0.64 x10^3/uL (0.2-0.8); MONOCYTES % (AUTO) 7 % (2-9); NEUTROPHILS # (AUTO) 6.56 x10^3/uL (1.8-6.8); NEUTROPHILS % (AUTO) 76 % (42-75); PLATELET COUNT 202 x10^3/uL (130-400); RED BLOOD COUNT 3.58 x10^6/uL (4.38-5.82); RED CELL DISTRIBUTION WIDTH 14.1 % (9.4-14.8)
[2018-11-29 06:12] LABS: ALANINE AMINOTRANSFERASE 10 U/L (12-78); ALBUMIN 2.4 g/dL (3.4-5.0); ALKALINE PHOSPHATASE 33 U/L (45-117); ANION GAP 7 mmol/L (5-15); BILIRUBIN,TOTAL 1.2 mg/dL (0.2-1.0); CHOL/HDL RATIO 4.1; CHOLESTEROL, TOTAL 118 mg/dL (140-239); CREATININE 0.61 mg/dL (0.7-1.3); HDL CHOL % 25 % (26-37); HDL CHOLESTEROL (DIRECT) 29 mg/dL (40-60); LDL CHOLESTEROL,CALCULATED 72 mg/dL (54-169); LDL/HDL RATIO 2.5 (0.5-3.0); TOTAL PROTEIN 6.5 g/dL (6.4-8.2); TRIGLYCERIDES 85 mg/dL (50-200); VLDL CHOLESTEROL 17 mg/dL (0-25)
[2018-11-29] MEDS: INSULIN LISPRO 100 UNITS/ML, PEN SQ-INSULIN SCH ×4 (07:00→19:42)
[2018-11-29 07:24] VITALS: BP 151/77
[2018-11-29 14:32] VITALS: BP_SYST 165; BP_DIAS 72; BP_DIAS 92
--- NOTE | 2018-11-29 15:34 | NUR ---
Patient to remain NPO. [place] sheet place in patient's room. Addendum: 11/29/18 at 1619 by TAMICA SMITH Amended: Links added.
[2018-11-29] MEDS: ENOXAPARIN 40 MG/0.4 ML SQ SCH (16:00)
[2018-11-29] MEDS: D5%-0.9% NACL 1,000 ML IV SCH (18:15)
[2018-11-29 19:41] VITALS: BP 171/87
[2018-11-29 20:30] VITALS: BP 156/82
[2018-11-29 23:33] VITALS: BP 160/81
[2018-11-30] MEDS: INSULIN LISPRO 100 UNITS/ML, PEN SQ-INSULIN SCH ×4 (03:01→20:24)
[2018-11-30 07:34] VITALS: BP 163/83
[2018-11-30] MEDS: D5%-0.9% NACL 1,000 ML IV SCH (11:00)
[2018-11-30 13:25] VITALS: BP 173/92
[2018-11-30] MEDS ORDERED: FENTANYL PF 100 MCG/2ML ONE (13:32)
[2018-11-30] MEDS ORDERED: MIDAZOLAM 1 MG/ML, 5ML ONE (13:33)
[2018-11-30] MEDS: ENOXAPARIN 40 MG/0.4 ML SQ SCH (17:20)
[2018-11-30 18:35] VITALS: BP 158/82
[2018-12-01 00:31] VITALS: BP 175/83
[2018-12-01] MEDS: hydrALAzine 20 MG/ML, 1ML IVPush PRN ×2 (02:42→16:40)
[2018-12-01] MEDS: INSULIN LISPRO 100 UNITS/ML, PEN SQ-INSULIN SCH ×4 (02:43→19:46)
[2018-12-01] MEDS: D5%-0.9% NACL 1,000 ML IV SCH (02:43)
[2018-12-01 03:29] VITALS: BP 156/71
[2018-12-01 05:38] LABS: ANION GAP 7 mmol/L (5-15); CALCIUM 8.2 mg/dL (8.5-10.1); CHLORIDE 103 mmol/L (98-107)
[2018-12-01 05:40] LABS: CREATININE 0.69 mg/dL (0.7-1.3)
[2018-12-01 05:49] LABS: BASOPHILS % (AUTO) 0 % (0-1); EOSINOPHILS # (AUTO) 0.03 x10^3/uL (0-0.4); EOSINOPHILS % (AUTO) 0 % (1-7); LYMPHOCYTES # (AUTO) 0.72 x10^3/uL (1-3.4); LYMPHOCYTES % (AUTO) 7 % (22-44); MD NO; MEAN CORPUSCULAR HEMOGLOBIN 29.7 pg (27.5-34.5); MEAN CORPUSCULAR HGB CONC 33.6 g/dL (33.2-36.2); MEAN CORPUSCULAR VOLUME 88.4 fL (81-97); MEAN PLATELET VOLUME 6.7 fL (7.4-10.4); MONOCYTES # (AUTO) 0.83 x10^3/uL (0.2-0.8); MONOCYTES % (AUTO) 8 % (2-9); NEUTROPHILS # (AUTO) 9.33 x10^3/uL (1.8-6.8); NEUTROPHILS % (AUTO) 86 % (42-75); PLATELET COUNT 264 x10^3/uL (130-400); RED BLOOD COUNT 3.98 x10^6/uL (4.38-5.82); RED CELL DISTRIBUTION WIDTH 14.2 % (9.4-14.8)
[2018-12-01 08:00] VITALS: BP_SYST 128; BP_SYST 174; BP_DIAS 78; BP_DIAS 82
[2018-12-01] MEDS ORDERED: POTASSIUM PHOSPHATE 44 MEQ in SODIUM CHLORIDE 0.9% 500 ML IV ONE (09:30)
[2018-12-01] MEDS ORDERED: MAGNESIUM SULFATE PMX 2GM/50ML 50 ML IV ONE (09:30)
[2018-12-01 14:00] VITALS: BP 186/93
[2018-12-01] MEDS: ENOXAPARIN 40 MG/0.4 ML SQ SCH (16:22)
[2018-12-01 19:08] VITALS: BP 159/81
[2018-12-02 02:04] VITALS: BP 160/88
[2018-12-02] MEDS: INSULIN LISPRO 100 UNITS/ML, PEN SQ-INSULIN SCH ×3 (03:00→15:00)
[2018-12-02 07:55] VITALS: BP 163/79
[2018-12-02] MEDS: D5%-0.9% NACL 1,000 ML IV SCH ×2 (08:36→22:01)
[2018-12-02 14:27] VITALS: BP 151/71
[2018-12-02] MEDS: ENOXAPARIN 40 MG/0.4 ML SQ SCH (15:17)
[2018-12-02] MEDS ORDERED: FENTANYL 12 MCG PATCH TD SCH ×2 (17:30→21:16)
[2018-12-02] MEDS ORDERED: FENTANYL REMOVE PATCH NOTE XX SCH (18:00)
[2018-12-02 21:17] VITALS: BP_SYST 170; BP_SYST 177; BP_DIAS 78; BP_DIAS 80
[2018-12-02] MEDS: hydrALAzine 20 MG/ML, 1ML IVPush PRN (21:20)
[2018-12-03 00:19] VITALS: BP 144/57
[2018-12-03 00:35] VITALS: BP 144/57
[2018-12-03 09:33] VITALS: BP 152/73
[2018-12-03] MEDS: D5%-0.9% NACL 1,000 ML IV SCH (10:26)
[2018-12-03 14:00] VITALS: BP 150/70
[2018-12-03] MEDS: ENOXAPARIN 40 MG/0.4 ML SQ SCH (15:22)
[2018-12-03 21:04] VITALS: BP 161/74
[2018-12-04] MEDS: D5%-0.9% NACL 1,000 ML IV SCH ×2 (01:08→12:21)
[2018-12-04 03:26] VITALS: BP 152/69
[2018-12-04 07:45] VITALS: BP 166/72
[2018-12-04 13:05] VITALS: BP 173/78
[2018-12-04 14:47] VITALS: BP 170/83
[2018-12-04] MEDS: hydrALAzine 20 MG/ML, 1ML IVPush PRN (14:55)
[2018-12-04] MEDS ORDERED: FENTANYL 25 MCG PATCH TD SCH (15:00)
[2018-12-04] MEDS ORDERED: FENTANYL REMOVE PATCH NOTE XX SCH (15:00)
[2018-12-04 21:15] VITALS: BP 164/75
[2018-12-05 00:30] VITALS: BP 163/76
[2018-12-05] MEDS: D5%-0.9% NACL 1,000 ML IV SCH (02:12)
[2018-12-05 07:22] VITALS: BP 156/78
== END 2018-12-05 11:24 | disposition hospice, home (50) | DRG 947 ==
LOC: ED 11:01 → EDIP 14:49 → 4WST 16:15
PROVIDERS: ADMIT Internal Medicine; ATTEND Internal Medicine
PROC: 0T9B70Z Drainage of Bladder with Drainage Device, Via Natural or Artificial Opening (ICD-10-PCS; principal; 2018-11-28)
PROC: 0D758ZZ Dilation of Esophagus, Via Natural or Artificial Opening Endoscopic (ICD-10-PCS; 2018-11-28)
DX: R53.1 Weakness (principal); E43 Unspecified severe protein-calorie malnutrition; R53.2 Functional quadriplegia; G93.49 Other encephalopathy; E87.1 Hypo-osmolality and hyponatremia; Z68.1 Body mass index [BMI] 19.9 or less, adult; I50.32 Chronic diastolic (congestive) heart failure; R13.10 Dysphagia, unspecified; R62.7 Adult failure to thrive; E11.65 Type 2 diabetes mellitus with hyperglycemia; D63.8 Anemia in other chronic diseases classified elsewhere; E83.42 Hypomagnesemia; E86.0 Dehydration; F32.9 Major depressive disorder, single episode, unspecified; I11.0 Hypertensive heart disease with heart failure; M06.9 Rheumatoid arthritis, unspecified; N40.0 Benign prostatic hyperplasia without lower urinary tract symptoms; Z80.0 Family history of malignant neoplasm of digestive organs; D72.829 Elevated white blood cell count, unspecified; Z66 Do not resuscitate; Z74.01 Bed confinement status; Z83.3 Family history of diabetes mellitus; Z79.899 Other long term (current) drug therapy
CPT/HCPCS: 36415; 70450; 71045; 72125; 74230; 80048; 80053; 80061; 81001; 82140; 82306; 82533; 82607; 82962; 83036; 83605; 83735; 84100; 84439; 84443; 85025; 85610; 85730; 87040; 93005; 99152; 99153; 99285; G0378; J1650; J2250; J3010; J7042; J0360; J1815; J3475; J7030; J7040